=== PATIENT | female | born 1945 | race Caucasian/White ===

== ENCOUNTER 2016-12-26 11:47 | Outpatient (CLI) ==
--- NOTE | 2016-12-26 14:28 | MRI ---
EXAM: MRI right foot without contrast. HISTORY: Pain. Fell. Top of foot pain first, second, third toes. Lateral ankle pain.. TECHNIQUE: Using a local extremity coil on a high field strength magnet multiplanar multisequence m agnet resonance imaging was performed of the right mid to forefoot without intravenous or intra-michael cular gadolinium contrast. Note this constitutes incomplete MR evaluation of the right hind-foot.. COMPARISON: Three-view plain film examination right foot 12/18/2016. FINDINGS: Please see separately dictated MRI right hind-foot 12/26/2016 for further evaluation. The alignment of the right mid to forefoot shows no dislocation. There are two separate corticated foci of ossification by transverse plane representing the medial cuneiform. This has the appearance of old fracture with nonunion. Prior tear/injury Lisfranc ligament. Extensive confluent bone marrow edema centered over this level along the lateral first metatarsal base, lateral aspect of the medial cuneiform as well as joint centered over the second and third tarsometatarsal joints. Confluent bone marrow edema over the proximal fourth metatarsal shaft and seen over the second and fourth metatarsal head as well. Confluent bone marrow edema/contusion over the lateral aspect of th e cuboid. Suspicion for superimposed areas of nondisplaced fracture over the lateral aspect of the medial cuneiform as well as second metatarsal base and lateral cuboid. Appearance of stress reactio n/stress fracture proximal fourth metatarsal. Superficial soft tissue edema/swelling over the dorsum. Muscle bulk shows some fatty infiltration/a trophy. Osteoarthrosis right great toe. First metatarsal phalangeal joint effusion. Dorsal extens or and plantar flexor tendons intact without tenosynovitis.. 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 Prior tear/injury Lisfranc ligament. Extensive confluent bone marrow edema/contusion centered over the midfoot as described. Specificall y suspected superimposed areas of nondisplaced fracture over the lateral aspect of the medial cuneif orm as well as second metatarsal base and lateral cuboid. Appearance of stress reaction/stress frac ture proximal fourth metatarsal. Superficial soft tissue edema/swelling over the dorsum. Muscle bulk fatty infiltration/atrophy. Osteoarthrosis right great toe.
--- NOTE | 2016-12-26 14:46 | MRI ---
EXAM: MRI right ankle/hind-foot without contrast. HISTORY: Pain right foot and ankle. Fell. Pain top of foot. Pain first, second, third toes. Emmanuel n lateral ankle. No right hind foot surgery.. TECHNIQUE: Using a local extremity coil on a high field strength magnet multiplanar multisequence M RI was performed of the right hind to midfoot without intravenous or intra-articular gadolinium cont rast. Note this constitutes incomplete MR evaluation of the right forefoot. COMPARISON: Three-view plain film examination right ankle 12/18/2016. FINDINGS: Please see separately dictated MRI right mid to forefoot 12/26/2016 for further evaluatio n. Alignment of the right hind to midfoot shows no dislocation. In correlation there is tear/stretch i njury involving the Lisfranc ligament. Two separate foci of corticated ossification with transverse oriented separation over the medial cuneiform. Appearance of ununited fracture/nonunion. Extensiv e bone marrow edema/contusion over the more inferior focus of ossification with question subchondral fracture. Bone marrow edema/contusion over the second metatarsal base with question avulsion fract ure over the medial aspect.. Adjacent areas of bone marrow edema/contusion over the lateral base of the first metatarsal and more distal lateral aspects of the middle and lateral cuneiform. Bone mar row edema/contusion over the proximal fourth metatarsal shaft which may reflect an area of stress re action/stress fracture. Bone marrow edema/contusion over the lateral aspect of the cuboid with nond isplaced fracture/stress fracture as well. Mild osteoarthrosis talonavicular joint. Talar dome of normal morphology. Superficial circumferent ial soft tissue edema/swelling about the right hind-foot. Low-lying soleus. Distal Achilles tendin osis/peritendinitis. Anterior compartment tendons intact. Thickening and increased signal intensit y to the proximal plantar fascia compatible with plantar fasciitis and partial tearing. Within the medial compartment there is posterior tibial tendinosis. The flexor digitorum longus and flexor hallucis longus tendons intact. Intact deltoid ligament fibers. Course of the tarsal tunne l within normal limit. Within the lateral compartment both the peroneus brevis and peroneus longus tendons intact without s ubluxation. Intact anterior and posterior tibiofibular ligament fibers as well as transverse ligame nt/tibial slip. Intact anterior and posterior talofibular ligament fibers as well as calcaneofibula r ligament fibers.. IMPRESSION: Tear/stretch injury involving the Lisfranc ligament. 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 Extensive bone marrow edema/contusion about the midfoot centered over the tarsometatarsal joint as d escribed. Areas of suspected superimposed nondisplaced fracture/stress fracture as described. Mild osteoarthrosis. Superficial circumferential soft tissue edema/swelling. Distal Achilles tendinosis/peritendinitis. Proximal plantar fasciitis and partial tearing. Posterior tibial tendinosis. Given the above findings recommendation is obtainment and correlation with dedicated CT right foot f or further delineation of the underlying osseous anatomy.
== END 2016-12-26 11:48 | disposition home or self-care (01) ==
LOC: RAD 11:47
PROVIDERS: ATTEND Physician Assistant Medical
DX: M79.671 Pain in right foot (principal)

== ENCOUNTER 2021-05-09 15:07 | Inpatient (IN) ==
--- NOTE | 2021-05-09 17:09 | ED.PDOC ---
General ED Provider: Dr. NAEEM ZAPIEN Chief Complaint: Back Pain Stated Complaint: Hip and back pain Time Seen by Provider: 05/09/21 17:20 Mode of Arrival: Ambulance Information Source: Patient and EMT Primary Care Provider: ASHANTI ALVARENGA MD Nursing and Triage Documentation Reviewed and Agree: Yes Does patient meet sepsis criteria?: No System Inflammatory Response Syndrome: Acutely Altered Mental Status and Not Applicable Sepsis Protocol: For patient's 13 years and over: Temp is 96.8 and below OR 101 and greater Pulse >90 BPM Resp >20/minute Acutely Altered Mental Status Are patient's symptoms suggestive of a new infection, such as: -Pneumonia -Skin, Soft Tissue -Endocarditis -UTI -Bone, Joint Infection -Implantable Device -Acute Abdominal Infection -Wound Infection -Meningitis -Blood Stream Catheter Infection -Unknown Musculoskeletal Complaint Exam Back Pain Complaint/Exam Mechanism of Injury: Reports No known trauma Onset/Duration: 2 days Symptoms Are: Worse Timing: Constant Episodes Lasting: Minutes Initial Severity: Moderate Current Severity: Moderate Location: Reports Diffuse (Rt Lumbar region into Rt Hip) Character: Reports Dull, Aching, Spasmodic and Stiffness Aggravating: Reports Movements Alleviating: Reports Rest Associated Signs and Symptoms: Denies Swelling, Redness, Bruising, Fever, Weakness, Numbness, Tingling, Abdominal pain, Flank pain, Bladder incontinence, Bowel incontinence, Weight loss and Pain with weight bearing Related History: Reports Similar episode TAD Risk Factors: Reports None AAA Risk Factors: Reports None Cauda Equina Risk Factors: Reports None Epidural Abcess Risk Factors: Reports None Related Surgical History: Reports None Focal Tenderness: Yes Paraspinal Muscle Tenderness: Yes Paraspinal Muscle Spasm: Yes Scoliosis: No Lordosis: No Kyphosis: No SLR Test: Right Negative and Left Negative Hip Motion Testing Pain: Right Positive and Left Negative Focal Weakness: Present None Focal Sensory Loss: Present None Gait: Present Unable Differential Diagnoses: Strain and Sprain Review of Systems Review Of Systems Constitutional: Reports Loss of appetite Eyes: Reports No symptoms Ears, Nose, Mouth, Throat: Reports No symptoms Respiratory: Reports No symptoms Cardiac: Reports No symptoms GI: Reports No symptoms : Reports No symptoms Musculoskeletal: Reports Back pain, Joint pain and Muscle pain Skin: Reports No symptoms Neurological: Reports No symptoms Endocrine: Reports No symptoms Hematologic/Lymphatic: Reports No symptoms All Other Systems: Reviewed and Negative [facility] Medical History (Updated 05/12/21 @ 08:20 by STEPHANIE BA) Diabetes Dyslipidemia GERD (gastroesophageal reflux disease) Hypertension Hypothyroid Lumbar radiculopathy Morbid obesity with BMI of 40.0-44.9, adult Neuropathy Renal failure Family History (Updated 05/09/21 @ 21:40 by EUGENE AMES, RN) FATHER Cancer Mother Hypertension Social History (Updated 05/09/21 @ 21:41 by EUGENE AMES RN) Smoking and tobacco status: Former smoker Surgical History (Updated 05/11/21 @ 07:57 by STEPHANIE BA) H/O tubal ligation History of appendectomy History of D&C History of foot surgery History of hysterectomy Physical Exam Physical Exam Appearance: Reports Well-appearing, Ill-appearing (moderate pain), Well- nourished and Obese Ill-appearing: None Pain Distress: Moderate Eyes: Reports WILLIAMS, EOMI and Conjunctiva clear ENT: Reports Ears normal, Nose normal and Oropharynx normal Neck: Supple Respiratory: Reports Airway patent, Breath sounds clear, Breath sounds equal and Respirations nonlabored Cardiovascular: Reports RRR, Pulses normal, No rub and No murmur GI/: Reports Soft, Nontender, No masses, Bowel sounds normal and No Organomegaly Musculoskeletal: Reports Normal strength, ROM intact, No edema and No calf ten derness Skin: Reports Warm, Dry and Normal color Neurological: Reports Sensation intact, Motor intact, Reflexes intact, Cranial nerves intact, Alert and Oriented Psychiatric: Reports Affect appropriate and Mood appropriate Interpretation Radiology Interpretation Exam Interpreted: CT Scan (degenerative changes in the spine. No Fracture. Sclerotic lesion acetabulum) Physician Notification Case Discussed Physician Notified: Dr Lujan-agrees with admit Time of Notification: 18:00 Critical Care Note Critical Care Note Total Critical Care Time (mins): 0 Course Course Hematology/Chemistry: 05/15/21 04:33 05/15/21 04:33 Orders, Labs, Meds: Lab Review 05/09/21 05/09/21 05/09/21 17:22 17:22 18:55 WBC 8.80 RBC 4.73 Hgb 13.7 Hct 40.9 MCV 86.5 MCH 29.0 MCHC 33.5 RDW Coeff of [place] 12.6 Plt Count 163 Immature Gran % (Auto) 0.2 Neut % (Auto) 63.0 Lymph % (Auto) 22.0 [place] % (Auto) 10.6 H Eos % (Auto) 3.3 Baso % (Auto) 0.9 Neut # (Auto) 5.5 Lymph # (Auto) 1.9 [place] # (Auto) 0.9 Eos # (Auto) 0.3 Baso # (Auto) 0.1 Immature Gran # (Auto) 0.0 Sodium 142.4 Potassium 4.74 Chloride 106.5 Carbon Dioxide 28.7 Anion Gap 11.94 BUN 25.1 H Creatinine 1.23 Estimated GFR (MDRD) 42.00 BUN/Creatinine Ratio 20.40 Glucose 75.6 Calcium 10.35 H Total Bilirubin 0.68 AST 26.0 ALT 31.6 Alkaline Phosphatase 73.4 Total Protein 6.78 Albumin 4.30 Globulin 2.48 Albumin/Globulin Ratio 1.73 Urine Color Yellow Urine Clarity Slightly Urine pH 6.5 Ur Specific [place] 1.010 Urine Protein Negative Urine Glucose (UA) Negative Urine Ketones Negative Urine Blood Negative Urine Nitrite Positive H Urine Bilirubin Negative Urine Urobilinogen 0.2 Ur Leukocyte Esterase Negative Urine Microscopic WBC 0-2 Ur Squamous Epith Cells Not present Urine Bacteria 4+ Adenovirus (PCR) B. pertussis DNA (PCR) B.parapertussis DNA PCR C. pneumoniae DNA (PCR) Coronavirus OC43 (PCR) Coronavirus HKU1 (PCR) Coronavirus 229E (PCR) Coronavirus NL63 (PCR) Human Metapneumovir PCR Influenza Type A (PCR) Influenza B (RT-PCR) M. pneumoniae (PCR) Parainfluenza 1 (PCR) Parainfluenza 2 (PCR) Parainfluenza 3 (PCR) Parainfluenza 4 (PCR) RSV (PCR) Entero/Rhino (PCR) SARS-CoV-2 (PCR) 05/09/21 18:58 WBC RBC Hgb Hct MCV MCH MCHC RDW Coeff of [place] Plt Count Immature Gran % (Auto) Neut % (Auto) Lymph % (Auto) [place] % (Auto) Eos % (Auto) Baso % (Auto) Neut # (Auto) Lymph # (Auto) [place] # (Auto) Eos # (Auto) Baso # (Auto) Immature Gran # (Auto) Sodium Potassium Chloride Carbon Dioxide Anion Gap BUN Creatinine Estimated GFR (MDRD) BUN/Creatinine Ratio Glucose Calcium Total Bilirubin AST ALT Alkaline Phosphatase Total Protein Albumin Globulin Albumin/Globulin Ratio Urine Color Urine Clarity Urine pH Ur Specific [place] Urine Protein Urine Glucose (UA) Urine Ketones Urine Blood Urine Nitrite Urine Bilirubin Urine Urobilinogen Ur Leukocyte Esterase Urine Microscopic WBC Ur Squamous Epith Cells Urine Bacteria Adenovirus (PCR) Not detected B. pertussis DNA (PCR) Not detected B.parapertussis DNA PCR Not detected C. pneumoniae DNA (PCR) Not detected Coronavirus OC43 (PCR) Not detected Coronavirus HKU1 (PCR) Not detected Coronavirus 229E (PCR) Not detected Coronavirus NL63 (PCR) Not detected Human Metapneumovir PCR Not detected Influenza Type A (PCR) Not detected Influenza B (RT-PCR) Not detected M. pneumoniae (PCR) Not detected Parainfluenza 1 (PCR) Not detected Parainfluenza 2 (PCR) Not detected Parainfluenza 3 (PCR) Not detected Parainfluenza 4 (PCR) Not detected RSV (PCR) Not detected Entero/Rhino (PCR) Not detected SARS-CoV-2 (PCR) Not detected Orders Category Date Time Status EKG-(ED ONLY) Stat CARDIO 05/09/21 17:09 Completed IV [ED IV/MEDIPORT/POWERPORT] .ONCE EMERGENCY 05/09/21 18:53 Active CBC W/ AUTO DIFF Stat LAB 05/09/21 17:22 Completed CMP [COMPREHENSIVE METABOLIC PANEL] Stat LAB 05/09/21 17:22 Completed RESPIRATORY PANEL 2.1 (PCR) Stat LAB 05/09/21 18:58 Completed UA [URINALYSIS C & S IF INDICATED] Stat LAB 05/09/21 18:55 Completed URINE CULTURE Stat LAB 05/09/21 18:55 Completed 0.9 % Sodium Chloride [Saline Flush] MEDS 05/09/21 18:53 Discontinued 1 syr IVF PRN PRN Enoxaparin Sodium [Lovenox] MEDS 05/09/21 19:00 Discontinued 40 mg IVP Q24H Nalbuphine HCl [Nubain] MEDS 05/09/21 18:22 Discontinued 10 mg IM ONCE STA Nalbuphine HCl [Nubain] MEDS 05/09/21 19:00 Discontinued [address] PELVIS W/O CONTRAST Stat RADS 05/09/21 17:09 Completed Medications Generic Name Dose Route Start Last Admin Trade Name Freq PRN Reason Stop Dose Admin Acetaminophen 650 mg 05/09/21 20:25 Acetaminophen 325 Mg Tablet PO Q4H PRN Analgesia Atorvastatin Calcium 20 mg 05/10/21 09:00 05/15/21 09:15 Atorvastatin Calcium 20 Mg Tablet PO 20 mg DAILY SHAWN Administration Calcium/Vitamin D 1 each 05/10/21 09:00 05/15/21 09:14 Calcium Carbonate/Vitamin D3 500 Mg/5 Mcg(200iu) 1 Each Tablet PO 1 each DAILY SHAWN Administration Cefdinir 300 mg 05/14/21 13:00 05/15/21 09:14 Cefdinir 300 Mg Capsule PO 05/17/21 12:59 300 mg Q12HR SHAWN Administration Cholecalciferol 1,000 unit 05/10/21 09:00 05/15/21 09:15 Cholecalciferol (Vitamin D3) 1,000 Unit (25 Mcg) Tablet PO 1,000 unit DAILY SHAWN Administration Enoxaparin Sodium 40 mg 05/10/21 21:00 05/14/21 20:43 Enoxaparin Sodium 40 Mg/0.4 Ml Syr SUBCUT 40 mg BEDTIME SHAWN Administration Gabapentin 200 mg 05/10/21 09:00 05/15/21 09:15 Gabapentin 100 Mg Capsule PO 200 mg BID SHAWN Administration Insulin Glargine 25 unit 05/10/21 21:00 05/14/21 20:48 Insulin Glargine,Hum.Rec.Anlog 100 Units/Ml SUBCUT 25 unit BEDTIME SHAWN Administration Insulin Human Lispro 5 unit 05/10/21 08:30 05/15/21 17:38 Insulin Lispro 100 Unit/Ml (3 Ml) Vial SUBCUT 5 unit TIDWM SHAWN Administration Insulin Human Regular 0 unit 05/10/21 12:09 05/15/21 17:38 Insulin Regular, Human 100 Unit/Ml (3ml) Vial SUBCUT 6 unit PRN PRN Administration Hyperglycemia Protocol Levothyroxine Sodium 75 mcg 05/10/21 06:30 05/15/21 06:28 Levothyroxine Sodium 75 Mcg Tablet PO 75 mcg QDAC SHAWN Administration Lisinopril 10 mg 05/10/21 09:00 05/15/21 09:15 Lisinopril 10 Mg Tablet PO 10 mg DAILY SHAWN Administration Nalbuphine HCl 10 mg 05/09/21 21:58 Nalbuphine Hcl 10 Mg/Ml Ampul IM Q6H PRN Pain Nystatin 1 applic 05/09/21 21:59 Nystatin 15 Gm Powder TP QID PRN Skin excoriation Ondansetron HCl 4 mg 05/09/21 20:25 Ondansetron Hcl/Pf 4 Mg/2 Ml Sdv IVP Q6H PRN Nausea / Vomiting Oxybutynin Chloride 5 mg 05/09/21 21:00 05/15/21 09:14 Oxybutynin Chloride 5 Mg Tablet PO 5 mg DAILY SHAWN Administration Prednisone 20 mg 05/13/21 08:30 05/15/21 09:14 Prednisone 20 Mg Tablet PO 20 mg DAILYWM SHAWN Administration Tizanidine HCl 4 mg 05/10/21 15:00 05/15/21 14:28 Tizanidine Hcl 4 Mg Tablet PO 4 mg TID SHAWN Administration Tramadol HCl 50 mg 05/09/21 23:00 05/15/21 14:28 Tramadol Hcl 50 Mg Tablet PO 50 mg TID SHAWN Administration Discontinued Medications Generic Name Dose Route Start Last Admin Trade Name Freq PRN Reason Stop Dose Admin Enoxaparin Sodium 40 mg 05/09/21 19:00 05/09/21 22:10 Enoxaparin Sodium 40 Mg/0.4 Ml Syr IVP Not Given Q24H [facility] Enoxaparin Sodium 30 mg 05/10/21 09:00 Enoxaparin Sodium 30 Mg/0.3 Ml Syr SUBCUT DAILY [facility] Enoxaparin Sodium 40 mg 05/09/21 22:05 05/09/21 22:48 Enoxaparin Sodium 40 Mg/0.4 Ml Syr SUBCUT 40 mg Q24H SHAWN Administration Levofloxacin/Dextrose 500 mg in 100 mls @ 100 mls/hr 05/09/21 20:30 05/09/21 21:27 Levaquin 500 Mg/100 Ml D5w IV 05/12/21 20:29 100 mls/hr DAILY SHAWN Administration Levofloxacin/Dextrose 750 mg in 150 mls @ 100 mls/hr 05/10/21 21:00 05/10/21 20:44 Levaquin 750 Mg/150 Ml D5w IV 05/13/21 20:59 100 mls/hr Q48HR@2100 SHAWN Administration CEFTRIAXONE/D5W 1 GM PREMIX 1 gm in 50 mls @ 75 mls/hr 05/11/21 09:00 05/14/21 13:06 Rocephin 1 Gm/50 Ml D5w IV 05/15/21 08:59 Not Given DAILY SHAWN Sodium Chloride 1,000 mls @ 75 mls/hr 05/11/21 09:00 05/11/21 09:53 Sodium Chloride IV 05/11/21 20:20 75 mls/hr .[id number] SHAWN Administration Insulin Human Lispro 5 unit 05/09/21 21:15 Insulin Lispro 100 Unit/Ml (3 Ml) Vial SUBCUT DIRECTED SHAWN Ketorolac Tromethamine 15 mg 05/09/21 22:31 05/11/21 04:42 Ketorolac Tromethamine 15 Mg/Ml Vial IVP 05/13/21 22:31 15 mg Q6HR PRN Administration Pain Levothyroxine Sodium 75 mcg 05/10/21 09:00 Levothyroxine Sodium 75 Mcg Tablet PO DAILY SHAWN Methylprednisolone Sodium Succinate 125 mg 05/09/21 21:00 05/12/21 05:50 Methylprednisolone Sod Succ/Pf 125 Mg/2 Ml Vial IVP 125 mg Q8HR SHAWN Administration Nalbuphine HCl 10 mg 05/09/21 18:22 05/09/21 18:30 Nalbuphine Hcl 10 Mg/Ml Ampul IM 05/09/21 18:23 10 mg ONCE STA Administration Nalbuphine HCl 10 mg 05/09/21 19:00 Nalbuphine Hcl 10 Mg/Ml Ampul IM PRN SHAWN Nystatin 1 applic 05/09/21 21:00 05/09/21 22:11 Nystatin 15 Gm Powder TP Not Given QID SHAWN Sodium Chloride 1 syr 05/09/21 18:53 0.9% Sodium Chloride 10 Ml Disp.Syrin IVF PRN PRN To flush IV Sodium Chloride 1 syr 05/10/21 13:30 05/14/21 13:15 0.9% Sodium Chloride 10 Ml Disp.Syrin IVF Not Given Q8HR SHAWN Tizanidine HCl 4 mg 05/09/21 21:00 05/10/21 08:44 Tizanidine Hcl 4 Mg Tablet PO 4 mg BID SHAWN Administration Vital Signs: Temp Pulse Resp BP Pulse Ox 05/09/21 15:07 98.0 F 57 L 20 153/53 H 97 Discharge Plan Discharge Patient Disposition: ADMITTED INPATIENT Discharge Problem: Acute low back pain, Bilateral hip pain, Acute UTI ED Provider: NAEEM ZAPIEN Condition: Fair Physician Progress Note: []
[2021-05-09 17:26] LABS: BASOPHILS # (AUTO) 0.1 K/uL (0-0.2); BASOPHILS % (AUTO) 0.9 % (0.0-3.0); EOSINOPHILS # (AUTO) 0.3 K/ul (0.0-0.7); EOSINOPHILS % (AUTO) 3.3 % (0.0-7.0); HEMATOCRIT 40.9 % (37.0-47.0); HEMOGLOBIN 13.7 g/dl (12.0-16.0); IMMATURE GRANULOCYTE % (AUTO) 0.2 % (0.0-5.0); LYMPHOCYTES # (AUTO) 1.9 K/uL (0.60-3.4); MEAN CORPUSCULAR HGB CONC 33.5 (31.8-35.4); MEAN CORPUSCULAR VOLUME 86.5 fl (81.0-99.0); MONOCYTES # (AUTO) 0.9 K/uL (0.4-2.0); MONOCYTES % (AUTO) 10.6 (0-10); NEUTROPHILS # (AUTO) 5.5 K/ul (2.0-6.9); PLATELET COUNT 163 10^3/uL (140-440); RDW COEFFICIENT OF VARIATION 12.6 % (11.6-14.8); RED BLOOD COUNT 4.73 10^6/ul (4.20-5.40)
[2021-05-09 17:39] LABS: ALANINE AMINOTRANSFERASE 31.6 U/L (0-35); ALBUMIN 4.3 g/dL (3.5-5.0); ALKALINE PHOSPHATASE 73.4 U/L (53-141); BILIRUBIN,TOTAL 0.68 mg/dL (0.2-1.3); BLOOD UREA NITROGEN 25.1 mg/dL (7-17); CALCIUM 10.35 mg/dL (8.4-10.2); CARBON DIOXIDE 28.7 mmol/L (22-30.0); CHLORIDE 106.5 mmol/L (98-107); CREATININE 1.23 mg/dL (0.60-1.30); GLUCOSE 75.6 mg/dL (74-106); POTASSIUM 4.74 mmol/L (3.5-5.1); SODIUM 142.4 mmol/L (134.5-145); TOTAL PROTEIN 6.78 g/dL (6.3-8.2)
--- NOTE | 2021-05-09 17:55 | CT ---
EXAM: CT pelvis without contrast. HISTORY: Hip and pelvic pain. PROCEDURE: Contiguous axial CT images of the pelvis without contrast with coronal and sagittal refor mats. FINDINGS: The bones are intact with no evidence of fracture. The joint spaces are maintained. There is a 1 cm sclerotic lesion in the right acetabulum. There are degenerative changes in the spine. T he visualized loops of bowel are normal in appearance. The bladder is adequately filled and normal i n appearance. The uterus is surgically absent. No free fluid or free air in the pelvis. Impression: No evidence of fracture. 1 cm sclerotic lesion in the right acetabulum. The differential diagnosis includes bone island and m etastatic disease. Hysterectomy. All CT scans are performed using dose optimization techniques as appropriate to the performed exam an d include at least one of the following: Automated exposure control, adjustment of the mA and/or kV according t o size, and the use of iterative reconstruction technique.
[2021-05-09] MEDS ORDERED: NUBAIN IM STA (18:22)
[2021-05-09] MEDS ORDERED: NUBAIN IM SCH (19:00)
[2021-05-09] MEDS ORDERED: LOVENOX IVP SCH (19:00)
[2021-05-09 19:02] LABS: BORDETELLA PARAPERTUSSIS (PCR) NOT DETECTED (NOT DETECT); BORDETELLA PERTUSSIS (PCR) NOT DETECTED (NOT DETECT); CHLAMYDIA PNEUMONIAE (PCR) NOT DETECTED (NOT DETECT); CORONAVIRUS 229E (PCR) NOT DETECTED (NOT DETECT); CORONAVIRUS HKU1 (PCR) NOT DETECTED (NOT DETECT); CORONAVIRUS NL63 (PCR) NOT DETECTED (NOT DETECT); CORONAVIRUS OC43 (PCR) NOT DETECTED (NOT DETECT); HUMAN METAPNEUMOVIRUS (PCR) NOT DETECTED (NOT DETECT); HUMAN RHINOVIRUS/ENTEROV (PCR) NOT DETECTED (NOT DETECT); INFLUENZA B (PCR) NOT DETECTED (NOT DETECT); MYCOPLASMA PNEUMONIAE (PCR) NOT DETECTED (NOT DETECT); PARAINFLUENZA VIRUS 1 (PCR) NOT DETECTED (NOT DETECT); PARAINFLUENZA VIRUS 2 (PCR) NOT DETECTED (NOT DETECT); PARAINFLUENZA VIRUS 3 (PCR) NOT DETECTED (NOT DETECT); PARAINFLUENZA VIRUS 4 (PCR) NOT DETECTED (NOT DETECT); RESPIRATORY SYNCYTIAL V (PCR) NOT DETECTED (NOT DETECT); SARS_COV_2 (PCR) NOT DETECTED (NOT DETECT)
[2021-05-09 19:08] LABS: BILIRUBIN,URINE Negative (NEGATIVE); CLARITY,URINE Slightly (CLEAR); COLOR,URINE Yellow (YELLOW); GLUCOSE, URINE (UA) Negative (NEGATIVE); KETONES,URINE Negative (NEGATIVE); LEUKOCYTE ESTERASE ,URINE Negative (NEGATIVE); NITRITE,URINE Positive (NEGATIVE); PH,URINE 6.5 (5-9); PROTEIN,URINE Negative (NEGATIVE); URINE, BLOOD Negative (NEGATIVE); UROBILINOGEN,URINE 0.2 (0.2)
[2021-05-09 19:17] LABS: BACTERIA,URINE 4+ (NOT PRESENT); SQUAMOUS EPITHELIAL CELL,UR NOT PRESENT (0-5); URINE WBC, MICROSCOPIC 0-2 (0-2)
[2021-05-09 19:52] LABS: ADENOVIRUS (PCR) NOT DETECTED (NOT DETECT)
[2021-05-09] MEDS ORDERED: ZOFRAN 4 MG/2 ML IVP PRN (20:25)
[2021-05-09] MEDS ORDERED: TYLENOL PO PRN (20:25)
[2021-05-09] MEDS ORDERED: LEVAQUIN 500 MG/100 ML D5W 500 MG/100 ML BAG IV SCH (20:30)
[2021-05-09] MEDS ORDERED: NYSTOP POWDER TP SCH (21:00)
[2021-05-09] MEDS ORDERED: HUMALOG SUBCUT SCH (21:15)
[2021-05-09 21:28] VITALS: BMI 44.6
[2021-05-09] MEDS: DITROPAN PO SCH (21:36)
[2021-05-09] MEDS: ZANAFLEX PO SCH (21:40)
[2021-05-09] MEDS ORDERED: NUBAIN IM PRN (21:58)
[2021-05-09] MEDS ORDERED: NYSTOP POWDER TP PRN (21:59)
[2021-05-09] MEDS ORDERED: LOVENOX SUBCUT SCH (22:05)
[2021-05-09] MEDS: SOLU-MEDROL 125 MG IVP SCH (22:25)
[2021-05-09] MEDS: ULTRAM PO SCH (22:48)
[2021-05-10] MEDS: TORADOL IVP PRN ×2 (02:58→13:30)
[2021-05-10 04:36] LABS: BASOPHILS % (AUTO) 0.4 % (0.0-3.0); EOSINOPHILS % (AUTO) 0.1 % (0.0-7.0); HEMATOCRIT 41.1 % (37.0-47.0); HEMOGLOBIN 13.8 g/dl (12.0-16.0); IMMATURE GRANULOCYTE % (AUTO) 0.3 % (0.0-5.0); LYMPHOCYTES # (AUTO) 0.7 K/uL (0.60-3.4); LYMPHOCYTES % (AUTO) 9.1 (10.0-50.0); MEAN CORPUSCULAR HGB CONC 33.6 (31.8-35.4); MEAN CORPUSCULAR VOLUME 86.3 fl (81.0-99.0); MONOCYTES # (AUTO) 0.1 K/uL (0.4-2.0); MONOCYTES % (AUTO) 0.9 (0-10); NEUTROPHILS # (AUTO) 6.9 K/ul (2.0-6.9); NEUTROPHILS % (AUTO) 89.2 % (42.2-75.2); PLATELET COUNT 137 10^3/uL (140-440); RDW COEFFICIENT OF VARIATION 12.3 % (11.6-14.8); RED BLOOD COUNT 4.76 10^6/ul (4.20-5.40); WHITE BLOOD COUNT 7.73 K/ul (4.6-10.2)
[2021-05-10 04:46] LABS: ALANINE AMINOTRANSFERASE 29.4 U/L (0-35); ALBUMIN 4.22 g/dL (3.5-5.0); ALKALINE PHOSPHATASE 78.7 U/L (53-141); ASPARTATE AMINO TRANSFERASE 24.3 U/L (14-36); BILIRUBIN,TOTAL 0.71 mg/dL (0.2-1.3); BLOOD UREA NITROGEN 27.1 mg/dL (7-17); CALCIUM 10.02 mg/dL (8.4-10.2); CARBON DIOXIDE 27.6 mmol/L (22-30.0); CREATININE 1.24 mg/dL (0.60-1.30); POTASSIUM 5.34 mmol/L (3.5-5.1); SODIUM 139.1 mmol/L (134.5-145); TOTAL PROTEIN 6.63 g/dL (6.3-8.2)
[2021-05-10] MEDS: SYNTHROID PO SCH (05:54)
[2021-05-10] MEDS: SOLU-MEDROL 125 MG IVP SCH ×3 (06:02→20:32)
[2021-05-10] MEDS: DITROPAN PO SCH (08:44)
[2021-05-10] MEDS: ZESTRIL PO SCH (08:44)
[2021-05-10] MEDS: NEURONTIN PO SCH ×2 (08:44→20:32)
[2021-05-10] MEDS: ZANAFLEX PO SCH ×3 (08:44→20:32)
[2021-05-10] MEDS: VITAMIN D PO SCH (08:44)
[2021-05-10] MEDS: CALCIUM 500 + VIT D 5 MCG (200 IU) TABLET PO SCH (08:45)
[2021-05-10] MEDS: LIPITOR PO SCH (08:45)
[2021-05-10] MEDS: ULTRAM PO SCH ×3 (08:45→20:32)
[2021-05-10] MEDS: HUMALOG SUBCUT SCH ×3 (08:46→17:25)
[2021-05-10] MEDS ORDERED: LOVENOX SUBCUT SCH (09:00)
[2021-05-10] MEDS ORDERED: NON-FORMULARY MEDICATION (Calcium Carbonate [Calcium 600] 600 mg calcium (1,500 mg) Tablet PO SCH (09:00)
[2021-05-10] MEDS ORDERED: FERROUS SULFATE PO SCH (09:00)
[2021-05-10] MEDS ORDERED: SYNTHROID PO SCH (09:00)
--- NOTE | 2021-05-10 09:58 | DI ---
EXAM: Chest two view, frontal and lateral views. HISTORY: Acute back pain. COMPARISON: None. FINDINGS: The heart size is mildly enlarged. There is no pulmonary vascular congestion. There is a thin linear opacity in the anterior lingula. Otherwise, the lungs are clear. No pleural effusion o r pneumothorax is seen. No acute osseous abnormality identified. IMPRESSION: 1. Lingular subsegmental atelectasis. 2. Cardiomegaly.
--- NOTE | 2021-05-10 10:29 | CT ---
EXAM: CT lumbar spine without contrast. HISTORY: Acute lower back pain with history of UTI COMPARISON: Lumbar spine x-rays 12/08/2020 TECHNIQUE: Serial axial images of the spine were obtained from the lower thoracic spine through the pelvis without contrast. These were viewed in multiple planes. FINDINGS: Vertebral bodies demonstrate no acute compression fracture or subluxation. There are scat tered anterior posterior disc osteophytes. There is moderate facet arthropathy. Lumbosacral junctio n is intact with mild narrowing. The posterior and transverse processes are normal. Posterior disc osteophyte and facet arthropathy contributing to mild bilateral neural foraminal narrowing at L2-L3. There is moderate to severe right neural foraminal narrowing with mild neural foraminal narrowing no ericka L3-L4. There is bilateral moderate neural foraminal narrowing at L4-L5. There is severe narrowi ng of the left neural foramen L5-S1. IMPRESSION: 1. No acute compression fracture or subluxation. 2. Multilevel degenerative disease of the spine with narrowing at multiple levels of the neural fora men which is most severe on the left at L5-S1. If further evaluation is clinically indicated, MRI ma y be obtained. All CT scans are performed using dose optimization techniques as appropriate to the performed exam an d include at least one of the following: Automated exposure control, adjustment of the mA and/or kV according t o size, and the use of iterative reconstruction technique.
[2021-05-10] MEDS: HUMULIN R SUBCUT PRN ×3 (12:34→20:35)
--- NOTE | 2021-05-10 16:01 | RS.OTINEVL ---
Subjective - Patient information Date of Evaluation: 05/10/21 Date of Arrival on Unit: 05/09/21 Diagnosis: Acute low back pain PRECAUTIONS: Pt describing sciatic pain in her buttox. Usual Living Arrangement: Alone Living Arrangement Comments: Lives alone in her apartment that has an upstairs. Reports that it is handicap accessible. Pt keeps her rollator on the main floor. Pt has 15 hours of assistance a week for laundry, cooking, cleaning, and shopping. Pt has a sink and toilet in bathroom downstairs. Home Environment: Apartment Medical History: Diabetes Medical History Comments:: Fell in December and just finished therapy. Subjective Information/ Patient Comments:: "I can make it to the door." - Level of function Prior to this admission, the patient could do the following:: Independent Selfcare, Independent ADL's, Independent Ambulation, Partially Dependent Ambulation, Perform Radiological Technician/Cooking, Drive, Participated in Social Activities Outside home, Volunteer/Work Abilities prior to this admission: Before her fall in December, patient was independent with dressing and bathing. Current Level of Function: Partially Dependent Current Equipment Used at Home: WALKER, CANE, GLUCOMETER Interventions - Objective Patient Orientation: Person, Place, Situation Current Interventions: IV's Observation: Pt has difficulty with bed mobility specifically sit to supine. Pt is able to use a RW CGA. Pt independent with toilet hygeine. Interventions - ROM Right Upper Extremity AROM: WFL's Left Upper Extremity AROM: WFL's - Strength Right Upper Extremity Strength: Mild Weakness Left Upper Extremity Strength: Mild Weakness - Sensation Right Upper Extremity Sensation: Intact/Normal Left Upper Extremity Sensation: Intact/Normal Balance - Sitting Balance Static Sitting Balance: Good Dynamic Sitting Balance: Good - Standing Balance Static Standing Balance: Poor Dynamic Standing Balance: Poor ADL Skills - Self Feeding Self Feeding: Independent - Grooming Grooming: CGA - Bathing Bathing UE: Independent Bathing LE: Max Assist - Dressing Dressing UE: Independent Dressing LE: Max Assist - Toilet Management Toileting Management: CGA Functional Mobility - Bed Mobility Rolling R/L: Independent Scooting: Independent Supine to Sit: Min Assist Sit to Supine: Min Assist - Transfers Sit to Stand: CGA Stand to Sit: CGA Stand Pivot Transfers: CGA NICOL INDEX SCORE: . Additional Treatment Performed - Time with patient Length of Evaluation: 20 Total treatment time: 30 Activities Do you enjoy playing games?: No Would you be interested in leaving your room for activities?: No Would you enjoy group activities?: Yes Do you have difficulty with your vision?: Yes Patient Interests:: Watching Television Patient Education Patient Education: Education of diagnosis, Home Exercise Program, Home Safety, Education of Plan of Care Teaching Recipient: Patient Teaching Methods: Discussion, Demonstration Assessment Problem List:: Decreased level of function, Decreased safety/Risk of falls, Pain limits previous level of function Rehab Potential: Good Further Therapy Indicated?: Yes Evaluation Complexity: HISTORY: Low, EXAM OF BODY SYSTEMS: Low, CLINICAL DECISION MAKING: Low Patient's Goal(s): To be pain free. Short Term Goals - Goals GOAL 1: Pt pain to decrease to 2-4/10. Goal to be met by: 05/12/21 GOAL 2: Pt to be Mod-I with toileting. Goal to be met by: 05/12/21 GOAL 3: Pt to increase safety of sink level ADLS to be Mod-I. Goal to be met by: 05/12/21 GOAL 4: Pt to increase dyn. std. balance to F-. Nursing Home Goals GOAL 1: Pt pain to decrease to 0-2/10. Goal to be met by: 05/18/21 GOAL 2: Pt to be Modified Independent with dressing. Goal to be met by: 05/18/21 GOAL 3: Pt to increase dyn. std. bal to F+ Goal to be met by: 05/18/21 Plan Plan of Care: Therapeutic EX, Therapeutic Activity, Self-Care/Home Management Frequency of Treatment: 1-2 X day, as tolerated Duration of Treatment: 1 Week Anticipated Discharge Destination: Home Treatment Diagnosis (ICD 10 Codes): Weakness M62.81 Has the Physician been added for Co-signature?: Yes
--- NOTE | 2021-05-10 16:15 | RS.PTINEVL ---
Subjective - Patient information Date of Evaluation: 05/10/21 Date of Arrival on Unit: 05/09/21 Admitted From:: Home Diagnosis: Acute Low back pain with radiculopathy Usual Living Arrangement: Alone Living Arrangement Comments: lives at home in 2 story apt with full bath on 2nd floor, with half bath on 1st floor. She has a caregiver 3 hours a day 5 days a week. Home Environment: Apartment Medical History: Hypertension, Diabetes Medical History Comments:: neuropathy, GERD, renal failure Surgical History: Hysterectomy Surgical History Comments:: stephanie choudhury sx Medications: see chart Subjective Information/ Patient Comments:: pt states that she had a fall in Dec 2020 and spent approx 6 weeks in rehab at [facility] and then received home health. pt states that her R low back/sacral area began hurting and radiating into buttocks. - Level of function Prior to this admission, the patient could do the following:: Independent Selfcare, Independent ADL's, Independent Ambulation, Partially Dependent Ambulation, Perform Body Design Checker/Cooking, Drive, Participated in Social Activities Outside home, Volunteer/Work Current Level of Function: Partially Dependent Current Equipment Used at Home: WALKER, CANE, GLUCOMETER Pain Assessement - Location R lumbar/sacral area Description: Radiating, Sharp, Aching Intensity: 7 Pain Behavior: Rubbing Site, Facial Grimacing Pain Aggravating Factors: Changing Position, Exercise/Activity Pain Alleviating Factors: Ice, Medication Interventions - Objective Patient Orientation: Person, Place, Time Current Interventions: IV's, Telemetry Observation: multiple areas of bruising. Range of Motion - ROM Right Upper Extremity AROM: WFL's Left Upper Extremity AROM: WFL's Right Lower Extremity AROM: WFL's Left Lower Extremity AROM: WFL's Comments:: RLE with pain Muscle Strength - Muscle Strength Right Upper Extremity Strength: Mild Weakness (grossly 4/5) Left Upper Extremity Strength: Mild Weakness (grossly 4/5) Right Lower Extremity Strength: Mild Weakness (hip flex 4-/5, knee flex/ext 4/5, ankle Df/PF 4/5) Left Lower Extremity Strength: Mild Weakness (hip flex 4-/5, knee flex/ext 4/5, ankle Df/PF 4/5) Sensation - Sensation Right Upper Extremity Sensation: Intact/Normal Left Upper Extremity Sensation: Intact/Normal Right Lower Extremity Sensation: Impaired (radicular pain into R buttock) Left Lower Extremity Sensation: Intact/Normal Palpation Palpation Findings: Tenderness, Trigger Point Comments:: tenderness and trigger point noted in area of R SI Balance - Sitting Balance and Reactions Static Sitting Balance: Good Dynamic Sitting Balance: Good - Standing Balance and Reactions Static Standing Balance: Poor Dynamic Standing Balance: Poor Standing Equilibrium Reactions: Delayed Left Standing Protective Reactions: Delayed Right Functional Mobility - Bed Mobility Rolling R/L: Min Assist, Mod Assist, 1 person assist, 2 person assist Scooting: Max Assist, 2 person assist Supine to Sit: Min Assist, Mod Assist, 1 person assist Sit to Supine: Min Assist, 1 person assist, 2 person assist - Transfers Sit to Stand: Min Assist, 1 person assist Stand to Sit: Min Assist, 1 person assist - Safety Awareness Safety Awareness: Fair NICOL INDEX SCORE: n/a Ambulation - Ambulation Assistive Device Used: Rolling Walker Orthotic/Prosthetic Device: No Distance: 20ft Assistance needed with Ambulation: Min Assist, 1 person assist Gait Deviations: Step-to gait, Forward posture, Short stride Factors Affecting Ambulation: Decreased Balance, Pain, Weakness, Decreased Safety, Limited Endurance Treatment time - Time with patient Length of Evaluation: 19 Total treatment time: 35 Patient Education - Education Patient Education: Activity Modification, Education of Plan of Care Teaching Recipient: Patient Teaching Methods: Discussion Assessment - Assessment Problem List:: Decreased level of function, Requires training/education, Decreased safety/Risk of falls, Weakness, Pain limits previous level of function Rehab Potential: Good Further Therapy Indicated?: Yes Candidate for Swing Bed for Therapy Services?: Feel pt may not be a candidate for swing bed would need to reeval at a later date. Evaluation Complexity: HISTORY: Medium, EXAM OF BODY SYSTEMS: Medium, CLINICAL PRESENTATION: Medium, CLINICAL DECISION MAKING: Medium Patient's Goal(s): Decrease low back pain and be able to go back home. Short Term Goals GOAL #1: pt demonstrate rolling and scooting in bed min to CGA x 1 Goal to be met by: 05/12/21 GOAL #2: Transfer sup to/from sidelying to/from sit min to CGA x 1 Goal to be met by: 05/12/21 GOAL #3: sit to/from stand CGA Goal to be met by: 05/12/21 GOAL #4: pt amb with rwx 75ft with CGA with improved step length . Goal to be met by: 05/12/21 GOAL #5: Decrease low back pain < 6/10 Goal to be met by: 05/12/21 [facility] Goals GOAL #1: pt independent with bed mobility Goal to be met by: 05/15/21 GOAL #2: Sup to/from sidelying to/from sit to/from stand independently Goal to be met by: 05/15/21 GOAL #3: pt amb functional household distances with rwx with SBA to I Goal to be met by: 05/15/21 Plan Plan of Care: Therapeutic EX, Neuromuscular Re-Educ, Therapeutic Activity Modalities: Cold Pack/Cryotherapy Other:: gait training Frequency of Treatment: 1-2 X day, as tolerated Duration of Treatment: 5 days Anticipated Discharge Destination: Home Treatment Diagnosis (ICD 10 Codes): difficulty walking R 26.2. impaired balance R 26.81. LBP M54.5. muscle weakness M62.81 Has the Physician been added for Co-signature?: Yes
[2021-05-10] MEDS: LOVENOX SUBCUT SCH (20:34)
[2021-05-10] MEDS: LANTUS SUBCUT SCH (20:36)
[2021-05-10] MEDS ORDERED: LEVAQUIN 750 MG/150 ML D5W 750 MG/150 ML BAG IV SCH (21:00)
[2021-05-11] MEDS: SOLU-MEDROL 125 MG IVP SCH ×3 (04:31→20:37)
[2021-05-11] MEDS: TORADOL IVP PRN (04:42)
[2021-05-11 04:56] LABS: BASOPHILS % (AUTO) 0.1 % (0.0-3.0); HEMATOCRIT 38.1 % (37.0-47.0); HEMOGLOBIN 12.7 g/dl (12.0-16.0); IMMATURE GRANULOCYTE # (AUTO) 0.1 (0.0-1.0); IMMATURE GRANULOCYTE % (AUTO) 0.4 % (0.0-5.0); LYMPHOCYTES # (AUTO) 0.8 K/uL (0.60-3.4); LYMPHOCYTES % (AUTO) 7.4 (10.0-50.0); MEAN CORPUSCULAR HEMOGLOBIN 28.5 pg (27.0-31.0); MEAN CORPUSCULAR HGB CONC 33.3 (31.8-35.4); MEAN CORPUSCULAR VOLUME 85.6 fl (81.0-99.0); MONOCYTES # (AUTO) 0.4 K/uL (0.4-2.0); MONOCYTES % (AUTO) 3.6 (0-10); NEUTROPHILS % (AUTO) 88.5 % (42.2-75.2); PLATELET COUNT 141 10^3/uL (140-440); RDW COEFFICIENT OF VARIATION 12.1 % (11.6-14.8); RED BLOOD COUNT 4.45 10^6/ul (4.20-5.40); WHITE BLOOD COUNT 11.35 K/ul (4.6-10.2)
[2021-05-11 05:13] LABS: ALANINE AMINOTRANSFERASE 22.8 U/L (0-35); ALBUMIN 3.76 g/dL (3.5-5.0); ALKALINE PHOSPHATASE 64.1 U/L (53-141); ASPARTATE AMINO TRANSFERASE 23.6 U/L (14-36); BILIRUBIN,TOTAL 0.42 mg/dL (0.2-1.3); BLOOD UREA NITROGEN 43.8 mg/dL (7-17); CALCIUM 9.28 mg/dL (8.4-10.2); CARBON DIOXIDE 25.4 mmol/L (22-30.0); CHLORIDE 101.7 mmol/L (98-107); CREATININE 1.42 mg/dL (0.60-1.30); GLUCOSE 325.1 mg/dL (74-106); POTASSIUM 5.24 mmol/L (3.5-5.1); SODIUM 132.8 mmol/L (134.5-145); TOTAL PROTEIN 5.82 g/dL (6.3-8.2)
[2021-05-11] MEDS: SYNTHROID PO SCH (06:13)
[2021-05-11] MEDS: HUMULIN R SUBCUT PRN ×4 (06:13→21:05)
[2021-05-11] MEDS ORDERED: SODIUM CHLORIDE 1,000 ML IV SCH (09:00)
--- NOTE | 2021-05-11 09:44 | PCM.PROG ---
Attending Provider: ATTENDING PROVIDER: Dr. ASHTYN SCHAEFFER This patient is seen with Sanam Bryan, Nurse Practitioner. DATE OF SERVICE: 05/11/21 SUBJECTIVE: This 76 year old /WHITE F was hospitalized 05/09/21. Resting comfortably in bed. The patient states pain is better with no radiation of pain down right leg, pain in bilateral hips and right buttock. Kidney function slightly worse today. Low back pain with radiculopathy. REVIEW OF SYSTEMS: CONSTITUTIONAL: No night sweats. No fatigue, malaise, lethargy. No fever or chills. HEENT: Eyes: No visual changes. No eye pain. No eye discharge. ENT: No runny nose. No epistaxis. No sinus pain. No odynophagia. No congestion. RESPIRATORY: No cough, no congestion. No hemoptysis. No shortness of breath. CARDIOVASCULAR: No angina symptoms. No CHF symptoms. No atypical chest pain for CAD. No palpitations. No orthopnea.. GASTROINTESTINAL: No abdominal pain. No nausea or vomiting. No diarrhea or constipation. No hematemesis. No hematochezia. GENITOURINARY: No urgency. No frequency. No dysuria. No hematuria. No obstruct sariah symptoms. No discharge. No pain. No significant abnormal bleeding. MUSCULOSKELETAL: Low back pain, right leg, hips and right buttock. NEUROLOGICAL: Awake, alert, oriented to time, place and person. No headache. No neck pain. No syncope. No seizures. No dizziness. PSYCHIATRIC: Not anxious. No depression. No suicidal thoughts. No homicidal thoughts. SKIN: No rash. No lesions. No wounds. ENDOCRINE: No unexplained weight loss. No weight gain. HEMATOLOGIC/LYMPHATIC: No anemia. No purpura. No petechiae. No prolonged or excessive bleeding. No palpable lymph nodes. PHYSICAL EXAMINATION: GENERAL: The patient is awake, alert and oriented, lying/sitting in bed in no d istress. VITAL SIGNS: Temperature 97.8 F, Pulse 53, Respiratory Rate 16, BP 131/70, Pulse Ox 96% HEENT: Head normocephalic, atraumatic. Eyes: Extraocular muscles are intact. Pupils are equal, round and reactive to light and accommodation. Ears: No lesions. Nose appeared normal. Throat: No exudate or erythema. NECK: Supple. No JVD, no carotid bruit. No lymphadenopathy or thyromegaly. LUNGS: Diminished breath sounds. Clear to auscultation. Percussion note normal. Chest symmetrical. HEART: S1, S2, no S3. No murmurs. No cyanosis or clubbing. No ascites. Pulses: Dorsalis pedis and posterior tibial pulses +1 to +2 both sides. ABDOMEN: Soft. Non-tender. Bowel sounds active. No CVA tenderness. No mass felt. EXTREMITIES: No edema. Full range of motion of all extremities, equal. NEUROLOGIC: No focal deficit. Cranial nerves II through XII are grossly intact. No headache. No double vision. SKIN: Not dry. Intact. Turgor-normal. LYMPHATIC: No palpable lymph nodes/no lymphedema. MUSCULOSKELETAL: Normal joints with no swelling. Muscle tone is normal. LAB REVIEW: 05/11/21 04:30 05/11/21 04:30 05/11/21 04:30: WBC 11.35 H, RBC 4.45, Hgb 12.7, Hct 38.1, MCV 85.6, MCH 28.5, MCHC 33.3, RDW Coeff of Cortez 12.1, Plt Count 141, Immature Gran % (Auto) 0.4, Neut % (Auto) 88.5 H, Lymph % (Auto) 7.4 L, Winn % (Auto) 3.6, Eos % (Auto) 0.0, Baso % (Auto) 0.1, Neut # (Auto) 10.0 H, Lymph # (Auto) 0.8, Winn # (Auto) 0.4, Eos # (Auto) 0.0, Baso # (Auto) 0.0, Immature Gran # (Auto) 0.1 05/11/21 04:30: Sodium 132.8 L, Potassium 5.24 H, Chloride 101.7, Carbon Dioxide 25.4, Anion Gap 10.94, BUN 43.8 H, Creatinine 1.42 H, Estimated GFR (MDRD) 36.00, BUN/Creatinine Ratio 30.84, Glucose 325.1 H, Calcium 9.28, Total Bilirubin 0.42, AST 23.6, ALT 22.8, Alkaline Phosphatase 64.1, Total Protein 5.82 L, Albumin 3.76, Globulin 2.06, Albumin/Globulin Ratio 1.82 ASSESSMENT: Please see below. 1. Acute low back pain. 2. Right lumbar radiculopathy. 3. UTI with gram negative rods. 4. Chronic kidney disease Stage 3. PLAN: 1. 1L NS at 75 cc/hr. 2. Discontinue Levaquin. 3. Rocephin 1 gm IV daily. Plan and coordination of the patient's care discussed in the presence of Waste Disposal Leakage Tester and nurse. CONDITION: Stable SCRIBED BY: STEPHANIE BA Medical Services Coordinator scribed while in presence of service performed by Dr. Schaeffer/Sanam Bryan APRN on 05/11/21 ([id number])
[2021-05-11] MEDS: ROCEPHIN 1 GM/50 ML D5W 1 GM/50 ML BAG IV SCH (09:53)
[2021-05-11] MEDS: CALCIUM 500 + VIT D 5 MCG (200 IU) TABLET PO SCH (09:54)
[2021-05-11] MEDS: VITAMIN D PO SCH (09:54)
[2021-05-11] MEDS: ZESTRIL PO SCH (09:54)
[2021-05-11] MEDS: NEURONTIN PO SCH ×2 (09:54→20:42)
[2021-05-11] MEDS: ZANAFLEX PO SCH ×3 (09:55→20:43)
[2021-05-11] MEDS: DITROPAN PO SCH (09:55)
[2021-05-11] MEDS: LIPITOR PO SCH (09:55)
[2021-05-11] MEDS: ULTRAM PO SCH ×3 (09:55→20:43)
[2021-05-11] MEDS: HUMALOG SUBCUT SCH ×3 (09:56→17:08)
--- NOTE | 2021-05-11 14:49 | PN ---
DATE OF SERVICE: 05/09/21 SUBJECTIVE: The patient was hospitalized through the emergency room. 76-year-old white female, a resident of [place] seen because of severe back pain and hip pain. The patient had no history of fall. Two to three days prior to hospitalization, the pain was rated as to 8 to 9 on a scale of 1 to 10. She was given Nubain and Vistaril in the emergency room which helped her some. CT scan of the pelvis was negative. She is scheduled for MRI of the lumbar spine in the morning. The patient's cardiovascular status is stable. She is going to be hospitalized for pain control. The patient during the evening hours has been given Toradol 50 mg IV along with Nubain 10 with Vistaril of 10 mg. The patient is also going to be put on Tramadol 50 mg t.i.d. p.r.n. for pain along with Tylenol. She is allergic to Codeine. CT scan of the pelvis did not show any fracture or acute findings. TIME SPENT: More than 30 minutes. Plan and coordination of the patient's care discussed in the presence of nurse. VERONICA
--- NOTE | 2021-05-11 14:56 | PN ---
DATE OF SERVICE: 05/10/21 SUBJECTIVE: 76-year-old white female hospitalized with lower back pain, moderate to severe 8 to 9 on a scale of 1 to 10. This happened Five days ago when she got up from the recliner, the patient says it feels like muscle spasms with history of muscle spasm before. The patient says the pain is somewhat less but still she has quite a bit of pain, radiation of pain to the lower part of the legs. REVIEW OF SYSTEMS: CONSTITUTIONAL: No night sweats. No fatigue, malaise, lethargy. No fever or chills. HEENT: Eyes: No visual changes. No eye pain. No eye discharge. ENT: No runny nose. No epistaxis. No sinus pain. No sore throat. No odynophagia. No congestion. RESPIRATORY: No cough, no congestion. No hemoptysis. No shortness of breath. CARDIOVASCULAR: No angina symptoms. No CHF symptoms. No atypical chest pain for CAD. No palpitations. No PND. No orthopnea. GASTROINTESTINAL: No abdominal pain. No nausea or vomiting. No diarrhea or constipation. No hematemesis. No hematochezia. GENITOURINARY: No urgency. No frequency. No dysuria. No hematuria. No obstructive symptoms. No discharge. No pain. No significant abnormal bleeding. MUSCULOSKELETAL: Back pain lower, no radiation of pain to any other parts of the body. NEUROLOGICAL: No headache. No neck pain. No syncope. No seizures. No dizziness. PSYCHIATRIC: Not anxious. No depression. No suicidal thoughts. No homicidal thoughts. SKIN: No rash. No lesions. No wounds. ENDOCRINE: No unexplained weight loss. No weight gain. HEMATOLOGIC/LYMPHATIC: No anemia. No purpura. No petechiae. No prolonged or excessive bleeding. No palpable lymph nodes. PHYSICAL EXAMINATION: VITAL SIGNS: Temperature 97.8, pulse 53, respiratory rate 18, blood pressure 135/59, pulse ox 93%. HEENT: Head normocephalic, atraumatic. Eyes: Extraocular muscles are intact. Pupils are equal, round and reactive to light and accommodation. Ears: No lesions. Nose appeared normal. Throat: No exudate or erythema. NECK: Supple. No JVD, no carotid bruit. No lymphadenopathy or thyromegaly. LUNGS: Clear to auscultation. Percussion note normal. Chest symmetrical. HEART: S1, S2, no S3. No murmurs. No cyanosis or clubbing. No ascites. Pulses: Dorsalis pedis and posterior tibial pulses +1 to +2 bilaterally. ABDOMEN: Soft. Nontender. Bowel sounds active. No CVA tenderness. No mass felt. EXTREMITIES: No edema. Full range of motion of all extremities, equal. NEUROLOGIC: No focal deficit. Cranial nerves II through XII are grossly intact. No headache. No double vision. SKIN: Not dry. Intact. Turgor - normal. LYMPHATIC: No palpable lymph nodes/no lymphedema. MUSCULOSKELETAL: Normal joints with no swelling. Muscle tone is normal. LABS: Hemoglobin 13.8, hematocrit 41, WBC 7,700, normal differential. Creatinine 1.2, BUN 27, potassium 5.3, glucose 257. ASSESSMENT: 1. Severe lower back pain likely lumbar muscle sprain or spasm. 2. 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 3. Diabetes mellitus. 4. Hyperkalemia. 5. Chronic kidney disease. PLAN: 1. Continue the patient on Xanaflex. 2. Also continue the patient on Toradol IV and Tramadol p.o. along with Nubain. 3. She may need physical therapy; after controlling the pain we may get the patient started on it. 4. The patient is going to be on sliding scale with Accu-Check. 5. Cardiovascular status stable. TIME SPENT: More than 30 minutes. Plan and coordination of the patient's care discussed in the presence of nurse. VERONICA
[2021-05-11] MEDS: LANTUS SUBCUT SCH (20:40)
[2021-05-11] MEDS: LOVENOX SUBCUT SCH (20:41)
[2021-05-12 05:28] LABS: BASOPHILS % (AUTO) 0.1 % (0.0-3.0); HEMATOCRIT 38.6 % (37.0-47.0); IMMATURE GRANULOCYTE # (AUTO) 0.1 (0.0-1.0); IMMATURE GRANULOCYTE % (AUTO) 0.9 % (0.0-5.0); LYMPHOCYTES # (AUTO) 0.5 K/uL (0.60-3.4); LYMPHOCYTES % (AUTO) 4.7 (10.0-50.0); MEAN CORPUSCULAR HGB CONC 33.7 (31.8-35.4); MONOCYTES # (AUTO) 0.5 K/uL (0.4-2.0); NEUTROPHILS # (AUTO) 10.3 K/ul (2.0-6.9); NEUTROPHILS % (AUTO) 90.3 % (42.2-75.2); PLATELET COUNT 146 10^3/uL (140-440); RDW COEFFICIENT OF VARIATION 12.3 % (11.6-14.8); RED BLOOD COUNT 4.49 10^6/ul (4.20-5.40); WHITE BLOOD COUNT 11.43 K/ul (4.6-10.2)
[2021-05-12 05:36] LABS: ALANINE AMINOTRANSFERASE 44.3 U/L (0-35); ALBUMIN 3.73 g/dL (3.5-5.0); ALKALINE PHOSPHATASE 68.9 U/L (53-141); ASPARTATE AMINO TRANSFERASE 32.9 U/L (14-36); BILIRUBIN,TOTAL 0.31 mg/dL (0.2-1.3); BLOOD UREA NITROGEN 48.8 mg/dL (7-17); CALCIUM 9.09 mg/dL (8.4-10.2); CARBON DIOXIDE 26.2 mmol/L (22-30.0); CHLORIDE 101.4 mmol/L (98-107); CREATININE 1.39 mg/dL (0.60-1.30); GLUCOSE 335.2 mg/dL (74-106); POTASSIUM 5.1 mmol/L (3.5-5.1); SODIUM 134.3 mmol/L (134.5-145); TOTAL PROTEIN 5.97 g/dL (6.3-8.2)
[2021-05-12] MEDS: SYNTHROID PO SCH (05:50)
[2021-05-12] MEDS: HUMULIN R SUBCUT PRN ×4 (05:50→20:19)
[2021-05-12] MEDS: SOLU-MEDROL 125 MG IVP SCH (05:50)
[2021-05-12] MEDS: CALCIUM 500 + VIT D 5 MCG (200 IU) TABLET PO SCH (08:43)
[2021-05-12] MEDS: VITAMIN D PO SCH (08:43)
[2021-05-12] MEDS: NEURONTIN PO SCH ×2 (08:43→20:16)
[2021-05-12] MEDS: ZANAFLEX PO SCH ×3 (08:44→20:16)
[2021-05-12] MEDS: LIPITOR PO SCH (08:44)
[2021-05-12] MEDS: ZESTRIL PO SCH (08:44)
[2021-05-12] MEDS: DITROPAN PO SCH (08:44)
[2021-05-12] MEDS: ULTRAM PO SCH ×3 (08:44→20:16)
[2021-05-12] MEDS: HUMALOG SUBCUT SCH ×3 (08:44→17:28)
--- NOTE | 2021-05-12 10:22 | PCM.PROG ---
Attending Provider: ATTENDING PROVIDER: Dr. ASHTYN SCHAEFFER DATE OF SERVICE: 05/12/21 SUBJECTIVE: This 76 year old /WHITE F was hospitalized 05/09/21 with acute low back pain started as she was getting out of recliner. Back pain is better. She is up and about. The patient is also being treated for UTI/E. coli with Rocephin. REVIEW OF SYSTEMS: CONSTITUTIONAL: No night sweats. No fatigue, malaise, lethargy. No fever or chills. HEENT: Eyes: No visual changes. No eye pain. No eye discharge. ENT: No runny nose. No epistaxis. No sinus pain. No odynophagia. No congestion. RESPIRATORY: No cough, no congestion. No hemoptysis. No shortness of breath. CARDIOVASCULAR: No angina symptoms. No CHF symptoms. No atypical chest pain for CAD. No palpitations. No orthopnea.. GASTROINTESTINAL: No abdominal pain. No nausea or vomiting. No diarrhea or constipation. No hematemesis. No hematochezia. GENITOURINARY: No urgency. No frequency. No dysuria. No hematuria. No obstructive symptoms. No discharge. No pain. No significant abnormal bleeding. MUSCULOSKELETAL: Mild back pain. NEUROLOGICAL: Awake, alert, oriented to time, place and person. No headache. No neck pain. No syncope. No seizures. No dizziness. PSYCHIATRIC: Not anxious. No depression. No suicidal thoughts. No homicidal thoughts. SKIN: No rash. No lesions. No wounds. ENDOCRINE: No unexplained weight loss. No weight gain. HEMATOLOGIC/LYMPHATIC: No anemia. No purpura. No petechiae. No prolonged or excessive bleeding. No palpable lymph nodes. PHYSICAL EXAMINATION: GENERAL: The patient is awake, alert and oriented, lying/sitting in bed in no distress. VITAL SIGNS: Temperature 97.5 F, Pulse 48, Respiratory Rate 18, BP 119/65, Pulse Ox 97% HEENT: Head normocephalic, atraumatic. Eyes: Extraocular muscles are intact. Pupils are equal, round and reactive to light and accommodation. Ears: No lesions. Nose appeared normal. Throat: No exudate or erythema. NECK: Supple. No JVD, no carotid bruit. No lymphadenopathy or thyromegaly. LUNGS: Clear to auscultation. Percussion note normal. Chest symmetrical. HEART: S1, S2, no S3. No murmurs. No cyanosis or clubbing. No ascites. Pulses: Dorsalis pedis and posterior tibial pulses +1 to +2 both sides. ABDOMEN: Soft. Non-tender. Bowel sounds active. No CVA tenderness. No mass felt. EXTREMITIES: No edema. Full range of motion of all extremities, equal. NEUROLOGIC: No focal deficit. Cranial nerves II through XII are grossly intact. No headache, no double vision or headache. SKIN: Warm and dry. Intact. Turgor-normal. LYMPHATIC: No palpable lymph nodes/no lymphedema. MUSCULOSKELETAL: Normal joints with no swelling. Muscle tone is normal. LAB REVIEW: 05/12/21 04:55 05/12/21 04:55 05/12/21 04:55: Sodium 134.3 L, Potassium 5.10, Chloride 101.4, Carbon Dioxide 26.2, Anion Gap 11.80, BUN 48.8 H, Creatinine 1.39 H, Estimated GFR (MDRD) 37.00, BUN/Creatinine Ratio 35.10, Glucose 335.2 H, Calcium 9.09, Total Bilirubin 0.31, AST 32.9, ALT 44.3 H, Alkaline Phosphatase 68.9, Total Protein 5.97 L, Albumin 3.73, Globulin 2.24, Albumin/Globulin Ratio 1.66 05/12/21 04:55: WBC 11.43 H, RBC 4.49, Hgb 13.0, Hct 38.6, MCV 86.0, MCH 29.0, MCHC 33.7, RDW Coeff of Cortez 12.3, Plt Count 146, Immature Gran % (Auto) 0.9, Neut % (Auto) 90.3 H, Lymph % (Auto) 4.7 L, Granite % (Auto) 4.0, Eos % (Auto) 0.0, Baso % (Auto) 0.1, Neut # (Auto) 10.3 H, Lymph # (Auto) 0.5 L, Granite # (Auto) 0.5, Eos # (Auto) 0.0, Baso # (Auto) 0.0, Immature Gran # (Auto) 0.1 ASSESSMENT: Please see below. 1. Lumbar muscle spasm, lower back pain with DJD of the spine. 2. UTI with E. Coli. 3. Chronic kidney disease followed by Kylee Crawley/JAYLEN Hawkins. 4. Diabetes mellitus. PLAN: 1. Discontinue IV Solu-Medrol. 2. Prednisone 20 mg daily. 3. Continue Rocephin. 4. Continue to monitor CBC, CMP. 5. Sliding scale with coverage. Sugar seems to be out of control from steroids. 6. Continue with PT/OT. Plan and coordination of the patient's care discussed in the presence of Sane Rn and nurse. CONDITION: Stable SCRIBED BY: Andres WESLEY scribed while in presence of service performed by Dr. ASHTYN SCHAEFFER on 05/12/21 ([id number])
[2021-05-12] MEDS: ROCEPHIN 1 GM/50 ML D5W 1 GM/50 ML BAG IV SCH (10:44)
[2021-05-12] MEDS: LOVENOX SUBCUT SCH (20:17)
[2021-05-12] MEDS: LANTUS SUBCUT SCH (20:19)
[2021-05-13 05:12] LABS: BASOPHILS % (AUTO) 0.1 % (0.0-3.0); HEMATOCRIT 41.6 % (37.0-47.0); HEMOGLOBIN 13.8 g/dl (12.0-16.0); IMMATURE GRANULOCYTE # (AUTO) 0.1 (0.0-1.0); IMMATURE GRANULOCYTE % (AUTO) 0.7 % (0.0-5.0); LYMPHOCYTES # (AUTO) 0.8 K/uL (0.60-3.4); LYMPHOCYTES % (AUTO) 6.1 (10.0-50.0); MEAN CORPUSCULAR HEMOGLOBIN 28.9 pg (27.0-31.0); MEAN CORPUSCULAR HGB CONC 33.2 (31.8-35.4); MONOCYTES # (AUTO) 1.3 K/uL (0.4-2.0); MONOCYTES % (AUTO) 9.2 (0-10); NEUTROPHILS # (AUTO) 11.4 K/ul (2.0-6.9); NEUTROPHILS % (AUTO) 83.9 % (42.2-75.2); PLATELET COUNT 156 10^3/uL (140-440); RDW COEFFICIENT OF VARIATION 12.4 % (11.6-14.8); RED BLOOD COUNT 4.78 10^6/ul (4.20-5.40); WHITE BLOOD COUNT 13.53 K/ul (4.6-10.2)
[2021-05-13 05:26] LABS: ALANINE AMINOTRANSFERASE 84.2 U/L (0-35); ALBUMIN 3.94 g/dL (3.5-5.0); ALKALINE PHOSPHATASE 69.3 U/L (53-141); ASPARTATE AMINO TRANSFERASE 41.7 U/L (14-36); BILIRUBIN,TOTAL 0.39 mg/dL (0.2-1.3); BLOOD UREA NITROGEN 51.2 mg/dL (7-17); CALCIUM 9.15 mg/dL (8.4-10.2); CARBON DIOXIDE 28.2 mmol/L (22-30.0); CHLORIDE 102.4 mmol/L (98-107); CREATININE 1.45 mg/dL (0.60-1.30); GLUCOSE 238.7 mg/dL (74-106); POTASSIUM 4.96 mmol/L (3.5-5.1); SODIUM 136.3 mmol/L (134.5-145); TOTAL PROTEIN 6.26 g/dL (6.3-8.2)
[2021-05-13] MEDS: SYNTHROID PO SCH (05:34)
[2021-05-13 05:44] LABS: MAGNESIUM 2.19 mg/dL (1.6-2.3); URIC ACID 6.22 mg/dL (2.5-6.2)
[2021-05-13] MEDS: HUMULIN R SUBCUT PRN ×2 (06:00→21:02)
[2021-05-13] MEDS: DITROPAN PO SCH (09:18)
[2021-05-13] MEDS: ZANAFLEX PO SCH ×3 (09:18→21:06)
[2021-05-13] MEDS: ROCEPHIN 1 GM/50 ML D5W 1 GM/50 ML BAG IV SCH (09:18)
[2021-05-13] MEDS: ULTRAM PO SCH ×3 (09:18→21:06)
[2021-05-13] MEDS: VITAMIN D PO SCH (09:19)
[2021-05-13] MEDS: CALCIUM 500 + VIT D 5 MCG (200 IU) TABLET PO SCH (09:19)
[2021-05-13] MEDS: LIPITOR PO SCH (09:19)
[2021-05-13] MEDS: PREDNISONE PO SCH (09:19)
[2021-05-13] MEDS: ZESTRIL PO SCH (09:19)
[2021-05-13] MEDS: NEURONTIN PO SCH ×2 (09:19→21:06)
[2021-05-13] MEDS: HUMALOG SUBCUT SCH ×3 (09:20→16:37)
[2021-05-13] MEDS: LANTUS SUBCUT SCH (21:03)
[2021-05-13] MEDS: LOVENOX SUBCUT SCH (21:04)
[2021-05-14] MEDS: SYNTHROID PO SCH (05:44)
[2021-05-14 06:12] LABS: BASOPHILS % (AUTO) 0.1 % (0.0-3.0); EOSINOPHILS # (AUTO) 0.1 K/ul (0.0-0.7); EOSINOPHILS % (AUTO) 0.9 % (0.0-7.0); HEMATOCRIT 41.7 % (37.0-47.0); HEMOGLOBIN 13.8 g/dl (12.0-16.0); IMMATURE GRANULOCYTE # (AUTO) 0.1 (0.0-1.0); IMMATURE GRANULOCYTE % (AUTO) 0.6 % (0.0-5.0); LYMPHOCYTES # (AUTO) 1.5 K/uL (0.60-3.4); LYMPHOCYTES % (AUTO) 14.2 (10.0-50.0); MEAN CORPUSCULAR HEMOGLOBIN 28.9 pg (27.0-31.0); MEAN CORPUSCULAR HGB CONC 33.1 (31.8-35.4); MEAN CORPUSCULAR VOLUME 87.4 fl (81.0-99.0); MONOCYTES # (AUTO) 1.3 K/uL (0.4-2.0); MONOCYTES % (AUTO) 12.3 (0-10); NEUTROPHILS # (AUTO) 7.5 K/ul (2.0-6.9); NEUTROPHILS % (AUTO) 71.9 % (42.2-75.2); PLATELET COUNT 151 10^3/uL (140-440); RDW COEFFICIENT OF VARIATION 12.6 % (11.6-14.8); RED BLOOD COUNT 4.77 10^6/ul (4.20-5.40); WHITE BLOOD COUNT 10.48 K/ul (4.6-10.2)
[2021-05-14] MEDS: HUMULIN R SUBCUT PRN ×2 (06:15→20:48)
[2021-05-14 06:26] LABS: ALANINE AMINOTRANSFERASE 103.1 U/L (0-35); ALBUMIN 3.65 g/dL (3.5-5.0); ALKALINE PHOSPHATASE 69.1 U/L (53-141); ASPARTATE AMINO TRANSFERASE 41.9 U/L (14-36); BILIRUBIN,TOTAL 0.46 mg/dL (0.2-1.3); BLOOD UREA NITROGEN 49.3 mg/dL (7-17); CALCIUM 9.44 mg/dL (8.4-10.2); CARBON DIOXIDE 32.8 mmol/L (22-30.0); CREATININE 1.41 mg/dL (0.60-1.30); GLUCOSE 203.5 mg/dL (74-106); POTASSIUM 5.16 mmol/L (3.5-5.1); SODIUM 135.6 mmol/L (134.5-145); TOTAL PROTEIN 5.79 g/dL (6.3-8.2)
[2021-05-14] MEDS: ULTRAM PO SCH ×3 (09:02→20:41)
[2021-05-14] MEDS: HUMALOG SUBCUT SCH ×3 (09:02→16:45)
[2021-05-14] MEDS: NEURONTIN PO SCH ×2 (09:02→20:41)
[2021-05-14] MEDS: ZESTRIL PO SCH (09:02)
[2021-05-14] MEDS: LIPITOR PO SCH (09:02)
[2021-05-14] MEDS: DITROPAN PO SCH (09:02)
[2021-05-14] MEDS: VITAMIN D PO SCH (09:02)
[2021-05-14] MEDS: CALCIUM 500 + VIT D 5 MCG (200 IU) TABLET PO SCH (09:02)
[2021-05-14] MEDS: PREDNISONE PO SCH (09:02)
[2021-05-14] MEDS: ZANAFLEX PO SCH ×3 (09:02→20:41)
[2021-05-14] MEDS: ROCEPHIN 1 GM/50 ML D5W 1 GM/50 ML BAG IV SCH (13:06)
[2021-05-14 13:11] LABS: CHOLESTEROL 135.2 mg/dL (0-200); TRIGLYCERIDES 112.6 mg/dL (0-150)
[2021-05-14] MEDS: OMNICEF PO SCH ×2 (13:14→20:41)
[2021-05-14 15:29] LABS: THYROID STIMULATING HORMONE 1.42 uIU/L (0.465-4.68)
[2021-05-14] MEDS: LOVENOX SUBCUT SCH (20:43)
[2021-05-14] MEDS: LANTUS SUBCUT SCH (20:48)
[2021-05-15 05:22] LABS: BASOPHILS % (AUTO) 0.2 % (0.0-3.0); EOSINOPHILS # (AUTO) 0.3 K/ul (0.0-0.7); EOSINOPHILS % (AUTO) 2.4 % (0.0-7.0); HEMATOCRIT 44.4 % (37.0-47.0); HEMOGLOBIN 14.9 g/dl (12.0-16.0); IMMATURE GRANULOCYTE # (AUTO) 0.1 (0.0-1.0); IMMATURE GRANULOCYTE % (AUTO) 0.5 % (0.0-5.0); LYMPHOCYTES # (AUTO) 1.7 K/uL (0.60-3.4); LYMPHOCYTES % (AUTO) 16.3 (10.0-50.0); MEAN CORPUSCULAR HEMOGLOBIN 29.2 pg (27.0-31.0); MEAN CORPUSCULAR HGB CONC 33.6 (31.8-35.4); MEAN CORPUSCULAR VOLUME 86.9 fl (81.0-99.0); MONOCYTES # (AUTO) 1.2 K/uL (0.4-2.0); MONOCYTES % (AUTO) 11.9 (0-10); NEUTROPHILS % (AUTO) 68.7 % (42.2-75.2); PLATELET COUNT 159 10^3/uL (140-440); RDW COEFFICIENT OF VARIATION 12.4 % (11.6-14.8); RED BLOOD COUNT 5.11 10^6/ul (4.20-5.40); WHITE BLOOD COUNT 10.21 K/ul (4.6-10.2)
[2021-05-15 05:37] LABS: ALANINE AMINOTRANSFERASE 104.5 U/L (0-35); ALBUMIN 3.58 g/dL (3.5-5.0); ALKALINE PHOSPHATASE 72.3 U/L (53-141); ASPARTATE AMINO TRANSFERASE 37.9 U/L (14-36); BILIRUBIN,TOTAL 0.6 mg/dL (0.2-1.3); BLOOD UREA NITROGEN 47.2 mg/dL (7-17); CALCIUM 9.53 mg/dL (8.4-10.2); CHLORIDE 101.5 mmol/L (98-107); CREATININE 1.39 mg/dL (0.60-1.30); GLUCOSE 165.5 mg/dL (74-106); POTASSIUM 5.34 mmol/L (3.5-5.1); SODIUM 137.9 mmol/L (134.5-145); TOTAL PROTEIN 5.82 g/dL (6.3-8.2)
[2021-05-15] MEDS: SYNTHROID PO SCH (06:28)
[2021-05-15] MEDS: HUMULIN R SUBCUT PRN ×4 (06:28→20:27)
[2021-05-15] MEDS: CALCIUM 500 + VIT D 5 MCG (200 IU) TABLET PO SCH (09:14)
[2021-05-15] MEDS: ZANAFLEX PO SCH ×3 (09:14→20:30)
[2021-05-15] MEDS: PREDNISONE PO SCH (09:14)
[2021-05-15] MEDS: OMNICEF PO SCH ×2 (09:14→20:29)
[2021-05-15] MEDS: DITROPAN PO SCH (09:14)
[2021-05-15] MEDS: ULTRAM PO SCH ×3 (09:14→20:29)
[2021-05-15] MEDS: NEURONTIN PO SCH ×2 (09:15→20:29)
[2021-05-15] MEDS: HUMALOG SUBCUT SCH ×3 (09:15→17:38)
[2021-05-15] MEDS: LIPITOR PO SCH (09:15)
[2021-05-15] MEDS: VITAMIN D PO SCH (09:15)
[2021-05-15] MEDS: ZESTRIL PO SCH (09:15)
--- NOTE | 2021-05-15 13:21 | PN ---
DATE OF SERVICE: 05/11/2021 SUBJECTIVE: The patient was seen and examined with the Nurse Practitioner. The patient's back pain is a lot better. Her is resting better. The patient's muscles spasms seems to be under control. TIME SPENT: More than 30 minutes. Plan and coordination of the patient's care discussed in the presence of nurse. VERONICA
[2021-05-15] MEDS: LOVENOX SUBCUT SCH (20:26)
[2021-05-15] MEDS: LANTUS SUBCUT SCH (20:26)
[2021-05-16 03:27] LABS: URINE CREATININE 44.9 mg/dL (Not Estab.); URINE MICROALBUMIN 58.8 ug/mL (Not Estab.)
[2021-05-16 05:14] LABS: BASOPHILS % (AUTO) 0.2 % (0.0-3.0); EOSINOPHILS # (AUTO) 0.4 K/ul (0.0-0.7); EOSINOPHILS % (AUTO) 4.1 % (0.0-7.0); HEMOGLOBIN 14.5 g/dl (12.0-16.0); IMMATURE GRANULOCYTE # (AUTO) 0.1 (0.0-1.0); IMMATURE GRANULOCYTE % (AUTO) 0.6 % (0.0-5.0); LYMPHOCYTES # (AUTO) 2.4 K/uL (0.60-3.4); LYMPHOCYTES % (AUTO) 22.5 (10.0-50.0); MEAN CORPUSCULAR HEMOGLOBIN 29.1 pg (27.0-31.0); MEAN CORPUSCULAR HGB CONC 33.7 (31.8-35.4); MEAN CORPUSCULAR VOLUME 86.2 fl (81.0-99.0); MONOCYTES # (AUTO) 1.2 K/uL (0.4-2.0); MONOCYTES % (AUTO) 11.7 (0-10); NEUTROPHILS # (AUTO) 6.5 K/ul (2.0-6.9); NEUTROPHILS % (AUTO) 60.9 % (42.2-75.2); PLATELET COUNT 171 10^3/uL (140-440); RDW COEFFICIENT OF VARIATION 12.4 % (11.6-14.8); RED BLOOD COUNT 4.99 10^6/ul (4.20-5.40)
[2021-05-16 05:19] VITALS: BP 120/74; TEMP 97.4
[2021-05-16 05:29] LABS: ALANINE AMINOTRANSFERASE 86.4 U/L (0-35); ALBUMIN 3.28 g/dL (3.5-5.0); ASPARTATE AMINO TRANSFERASE 29.8 U/L (14-36); BILIRUBIN,TOTAL 0.66 mg/dL (0.2-1.3); BLOOD UREA NITROGEN 40.8 mg/dL (7-17); CALCIUM 9.26 mg/dL (8.4-10.2); CARBON DIOXIDE 38.5 mmol/L (22-30.0); CHLORIDE 101.2 mmol/L (98-107); CREATININE 1.31 mg/dL (0.60-1.30); GLUCOSE 98.1 mg/dL (74-106); POTASSIUM 5.25 mmol/L (3.5-5.1); SODIUM 138.9 mmol/L (134.5-145); TOTAL PROTEIN 5.32 g/dL (6.3-8.2)
[2021-05-16] MEDS: SYNTHROID PO SCH (05:34)
[2021-05-16] MEDS ORDERED: KAYEXALATE SUSP PO ONE (08:49)
[2021-05-16] MEDS ORDERED: PYRIDIUM PO SCH (09:00)
--- NOTE | 2021-05-16 09:41 | PCM.PROG ---
Attending Provider: ATTENDING PROVIDER: Dr. ASHTYN LUJAN This patient is seen with Sanam Bryan, Nurse Practitioner. DATE OF SERVICE: 05/16/21 SUBJECTIVE: This 76 year old /WHITE F was hospitalized 05/09/21. The patient is resting comfortably. Still having urinary pressure. Back pain has improved. States ready to go home. Would benefit from Home Health for PT, OT and nursing. REVIEW OF SYSTEMS: CONSTITUTIONAL: No night sweats. No fatigue, malaise, lethargy. No fever or chills. HEENT: Eyes: No visual changes. No eye pain. No eye discharge. ENT: No runny nose. No epistaxis. No sinus pain. No odynophagia. No congestion. RESPIRATORY: No cough, no congestion. No hemoptysis. No shortness of breath. CARDIOVASCULAR: No angina symptoms. No CHF symptoms. No atypical chest pain for CAD. No palpitations. No orthopnea.. GASTROINTESTINAL: No abdominal pain. No nausea or vomiting. No diarrhea or constipation. No hematemesis. No hematochezia. GENITOURINARY: No urgency. No frequency. Dysuria. No hematuria. No obstructive symptoms. No discharge. No pain. No significant abnormal bleeding. MUSCULOSKELETAL: No musculoskeletal pain; no joint swelling. Back Pain. NEUROLOGICAL: Awake, alert, oriented to time, place and person. No headache. No neck pain. No syncope. No seizures. No dizziness. PSYCHIATRIC: Not anxious. No depression. No suicidal thoughts. No homicidal t houghts. SKIN: No rash. No lesions. No wounds. ENDOCRINE: No unexplained weight loss. No weight gain. HEMATOLOGIC/LYMPHATIC: No anemia. No purpura. No petechiae. No prolonged or excessive bleeding. No palpable lymph nodes. PHYSICAL EXAMINATION: GENERAL: The patient is awake, alert and oriented, lying in bed in no distress. VITAL SIGNS: Temperature 97.4 F, Pulse 64, Respiratory Rate 18, BP 120/74, Pulse Ox 98% HEENT: Head normocephalic, atraumatic. Eyes: Extraocular muscles are intact. Pupils are equal, round and reactive to light and accommodation. Ears: No lesions. Nose appeared normal. Throat: No exudate or erythema. NECK: Supple. No JVD, no carotid bruit. No lymphadenopathy or thyromegaly. LUNGS: Diminished breath sounds. Clear to auscultation. Percussion note normal. Chest symmetrical. HEART: S1, S2, no S3. No murmurs. No cyanosis or clubbing. No ascites. Pulses: Dorsalis pedis and posterior tibial pulses +1 to +2 both sides. ABDOMEN: Soft. Non-tender. Bowel sounds active. No CVA tenderness. No mass felt. EXTREMITIES: No edema. Full range of motion of all extremities, equal. NEUROLOGIC: No focal deficit. Cranial nerves II through XII are grossly intact. No headache. No double vision. SKIN: Not dry. Intact. Turgor-normal. LYMPHATIC: No palpable lymph nodes/no lymphedema. MUSCULOSKELETAL: Normal joints with no swelling. Muscle tone is normal. LAB REVIEW: 05/16/21 04:40 05/16/21 04:40 05/16/21 04:40: Sodium 138.9, Potassium 5.25 H, Chloride 101.2, Carbon Dioxide 38.5 H, Anion Gap 4.45, BUN 40.8 H, Creatinine 1.31 H, Estimated GFR (MDRD) 39.00, BUN/Creatinine Ratio 31.14, Glucose 98.1, Calcium 9.26, Total Bilirubin 0.66, AST 29.8, ALT 86.4 H, Alkaline Phosphatase 62.0, Total Protein 5.32 L, Albumin 3.28 L, Globulin 2.04, Albumin/Globulin Ratio 1.60 05/16/21 04:40: WBC 10.60 H, RBC 4.99, Hgb 14.5, Hct 43.0, MCV 86.2, MCH 29.1, MCHC 33.7, RDW Coeff of [place] 12.4, Plt Count 171, Immature Gran % (Auto) 0.6, Neut % (Auto) 60.9, Lymph % (Auto) 22.5, [place] % (Auto) 11.7 H, Eos % (Auto) 4.1, Baso % (Auto) 0.2, Neut # (Auto) 6.5, Lymph # (Auto) 2.4, [place] # (Auto) 1.2, Eos # (Auto) 0.4, Baso # (Auto) 0.0, Immature Gran # (Auto) 0.1 05/13/21 18:10: Urine Creatinine 44.9, Urine Microalbumin 58.8, Microalb/Creat Ratio 131 H ASSESSMENT: Please see below. 1. Acute low back pain, improved 2. UTI positive e-coli 3. Chronic kidney disease stage 3 4. Diabetes Mellitus type II PLAN: 1. Discharge home 2. Kayexalate 12.5mg once before discharge 3. Omnicef 300mg BID for 5 days 4. The patient would benefit from PT, OT and nursing. We will refer to [facility]. The patient would benefit from lift chair. Plan and coordination of the patient's care discussed in the presence of Harsha bowman and nurse. SCRIBED BY: Andres ARAUZ scribed while in presence of service performed by Dr. Lujan/Sanam Bryan APRN on 05/16/21 ([id number])
[2021-05-16] MEDS: ULTRAM PO SCH ×2 (10:03→15:42)
[2021-05-16] MEDS: LIPITOR PO SCH (10:03)
[2021-05-16] MEDS: NEURONTIN PO SCH (10:04)
[2021-05-16] MEDS: OMNICEF PO SCH (10:04)
[2021-05-16] MEDS: PREDNISONE PO SCH (10:04)
[2021-05-16] MEDS: CALCIUM 500 + VIT D 5 MCG (200 IU) TABLET PO SCH (10:04)
[2021-05-16] MEDS: VITAMIN D PO SCH (10:04)
[2021-05-16] MEDS: ZANAFLEX PO SCH ×2 (10:04→15:42)
[2021-05-16] MEDS: ZESTRIL PO SCH (10:05)
[2021-05-16] MEDS: DITROPAN PO SCH (10:05)
[2021-05-16] MEDS: HUMALOG SUBCUT SCH ×2 (10:07→12:04)
--- NOTE | 2021-05-16 12:02 | US ---
EXAM: Ultrasound bilateral carotid duplex HISTORY: Dizziness and hypertension COMPARISON: None TECHNIQUE: Sonographic and color Doppler evaluation of the carotids were performed. FINDINGS: The right carotid is patent in appearance with moderate scattered atherosclerotic plaque visualized. The right ICA peak systolic velocity measures 85 cm/sec which is normal. The ICA / CCA peak systolic velocity ratio is 1.0 and ICA end-diastolic velocity is 14 cm/sec. The left carotid is patent in appearance with scattered moderate atherosclerotic plaque visualized. The left ICA peak systolic velocity measures 57 cm/sec which is within normal limits. The left ICA / CCA peak systolic velocity ratio is 0.9 and ICA end-diastolic velocity is 13 cm/sec. Vertebral arteries demonstrate antegrade flow bilaterally. Color Doppler and wave spectral evaluation are within normal limits. IMPRESSION: Bilateral moderate scattered atherosclerotic disease with no evidence of hemodynamically significant stenosis.
[2021-05-16] MEDS: HUMULIN R SUBCUT PRN (12:03)
--- NOTE | 2021-05-16 13:09 | CM.DICTOOL ---
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 ANEMIA HTN / LVH DYSLIPIDEMIA GERD TYPE 2 DM HYPOTHYROIDISM KIDNEY DISEASE RENAL FAILURE NEUROPATHY OSTEOPOROSIS MORBID OBESITY BMI 40.0-44.9 CHRONIC BACK PAIN SURGICAL HISTORY: TUBAL LIGATION APPENDECTOMY D&C FOOT SURGERY HYSTERECTOMY CODE STATUS: DO NOT RESUSCITATE LAST VITALS Temp Pulse Resp BP Pulse Ox 97.4 F L 64 18 120/74 98 05/16/21 05:17 05/16/21 05:17 05/16/21 05:17 05/16/21 05:17 05/16/21 05:17 TAKE THESE MEDICATIONS AT HOME ASPIRIN-Acetaminophen- caffeine ( extra strength pain reliever ) PO Q4-6 hours PRN PRN Reason: Analgesia Atorvastatin Calcium (Atorvastatin Calcium 20 Mg Tablet) 20 mg PO DAILY [facility] Last Admin: 05/16/21 10:03 Dose: 20 mg Documented by: Calcium/Vitamin D (Calcium Carbonate/Vitamin D3 500 Mg/5 Mcg(200iu) 1 Each Tablet) 1 each PO DAILY [facility] Last Admin: 05/16/21 10:04 Dose: 1 each Documented by: Cefdinir (Cefdinir 300 Mg Capsule) 300 mg PO Q12HR [facility] THIS PM AND THEN 5 MORE DAYS ( TOTAL OF 11 DOSES ) Stop: 05/17/21 12:59 Last Admin: 05/16/21 10:04 Dose: 300 mg Documented by: Cholecalciferol (Cholecalciferol (Vitamin D3) 1,000 Unit (25 Mcg) Tablet) 1,000 unit PO DAILY [facility] Last Admin: 05/16/21 10:04 Dose: 1,000 unit Documented by: Gabapentin (Gabapentin 100 Mg Capsule) 200 mg PO BID [facility] Last Admin: 05/16/21 10:04 Dose: 200 mg Documented by: Insulin Glargine (Insulin Glargine,Hum.Rec.Anlog 100 Units/Ml) 25 unit SUBCUT BEDTIME [facility] Last Admin: 05/15/21 20:26 Dose: 25 unit Documented by: Insulin Human Lispro (Insulin Lispro 100 Unit/Ml (3 Ml) Vial) 5 unit SUBCUT TIDWM [facility] Last Admin: 05/16/21 12:04 Dose: 5 unit Documented by: Levothyroxine Sodium (Levothyroxine Sodium 75 Mcg Tablet) 75 mcg PO QDAC [facility] Last Admin: 05/16/21 05:34 Dose: 75 mcg Documented by: Lisinopril (Lisinopril 10 Mg Tablet) 10 mg PO DAILY [facility] Last Admin: 05/16/21 10:05 Dose: 10 mg Documented by: Nystatin (Nystatin 15 Gm Powder) 1 applic TP QID PRN PRN Reason: Skin excoriation Oxybutynin Chloride (Oxybutynin Chloride 5 Mg Tablet) 5 mg PO DAILY [facility] Last Admin: 05/16/21 10:05 Dose: 5 mg Documented by: Phenazopyridine HCl (Phenazopyridine Hcl 100 Mg Tablet) 100 mg PO BID [facility] X 2 DAYS Stop: 05/18/21 21:01 Last Admin: 05/16/21 10:04 Dose: 100 mg Documented by: Tramadol HCl (Tramadol Hcl 50 Mg Tablet) 50 mg PO TID [facility] Last Admin: 05/16/21 10:03 Dose: 50 mg Documented by: CICLOPIROX ONE APPLICATION TOPICAL BID ZANAFLEX 4 MG 1 TABLET PO BID PRN TRAMADOL 50 MG 1 TABLET PO BID PRN ALLERGIES aspirin Adverse Reaction (Verified 05/09/21 15:14) codeine Adverse Reaction (Verified 05/09/21 15:14) diazepam [From Valium] Adverse Reaction (Verified 05/09/21 15:14) latex Adverse Reaction (Verified 05/09/21 15:14) Penicillins Adverse Reaction (Verified 05/09/21 15:14) DISCONTINUED MEDICATIONS NONE NEW PRESCRIPTIONS: OMNICEF 300 MG PO Q 12 HOURS X TONIGHT AT HOME AND 5 MORE DAYS PYRIDIUM 100 MG PO BID X 3 MORE DOSES ZANAFLEX 4 MG 1 TABLET PO BID PRN TRAMADOL 50 MG 1 TABLET PO BID PRN SMOKING: N/A DISEASE SPECIFIC EDUCATION: UTI BACK PAIN ACTIVITY COVID LAB REVIEW: 05/16/21 04:40 05/16/21 04:40 05/16/21 04:40: Sodium 138.9, Potassium 5.25 H, Chloride 101.2, Carbon Dioxide 38.5 H, Anion Gap 4.45, BUN 40.8 H, Creatinine 1.31 H, Estimated GFR (MDRD) 39.00, BUN/Creatinine Ratio 31.14, Glucose 98.1, Calcium 9.26, Total Bilirubin 0.66, AST 29.8, ALT 86.4 H, Alkaline Phosphatase 62.0, Total Protein 5.32 L, Albumin 3.28 L, Globulin 2.04, Albumin/Globulin Ratio 1.60 05/16/21 04:40: WBC 10.60 H, RBC 4.99, Hgb 14.5, Hct 43.0, MCV 86.2, MCH 29.1, MCHC 33.7, RDW Coeff of [place] 12.4, Plt Count 171, Immature Gran % (Auto) 0.6, Neut % (Auto) 60.9, Lymph % (Auto) 22.5, [place] % (Auto) 11.7 H, Eos % (Auto) 4.1, Baso % (Auto) 0.2, Neut # (Auto) 6.5, Lymph # (Auto) 2.4, [place] # (Auto) 1.2, Eos # (Auto) 0.4, Baso # (Auto) 0.0, Immature Gran # (Auto) 0.1 05/13/21 18:10: Urine Creatinine 44.9, Urine Microalbumin 58.8, Microalb/Creat Ratio 131 H PLAN: DISCHARGE: HOME TODAY WITH Email Data Source [employer] AND [facility] SECONDARY INSURANCE [facility] TO TAKE CARE OF OBTAINING A LIFT CHAIR, PRESCRIPTION SENT ACTIVITY: UP TOLERATED WITH FREQUENT REST PERIODS USE WHEELED WALKER AND FOLLOW HOME HEALTH GUIDELINES DIET: CONSISTENT CARBOHYDRATES MD FOLLOW UP: SEE DR. SCHAEFFER/ JOHN CALLAHAN APRN/ MARTIN PEREZ APRN IN THE OFFICE ON Saturday @ 1030 AM CODE STATUS: DO NOT RESUSCITATE MRS HARTLEY IS ALERT AND ORIENTED X 4. CHRONIC BACK PAIN THAT HAD GOTTEN WORSE, NOW IMPROVED. SHE IS ABLE TO SIT AND STAND ON HER OWN. SHE IS UP WITH A WHEELED WALKER SHE WALKED WITH THERAPY 90 FEET X 2 WITH WHEELED WALKER AND SBA/SUPERVISION. SHE HAS HAD INTERMITTENT BURNING UPON URINATION. CONTINENT OF BOWEL AND BLADDER, WITH DRIBBLING AT TIMES. NUTRITIONAL INTAKE GOOD AND FLUID INTAKE SUBSTANTIAL.SKIN WARM DRY AND INTACT. SHE LIVES ALONE WITH [facility] AND WILL GO HOME WITH [facility], PT, OT AND SN. MD JOHN POWELL APRN ALYCE HANNAN, APRN
--- NOTE | 2021-05-16 13:10 | PN ---
DATE OF SERVICE: 05/13/21 SUBJECTIVE: The patient was seen and examined this morning. The patient's condition has improved. She is sitting up in the chair and waiting for breakfast. REVIEW OF SYSTEMS: CONSTITUTIONAL: No night sweats. No fatigue, malaise, lethargy. No fever or chills. HEENT: Eyes: No visual changes. No eye pain. No eye discharge. ENT: No runny nose. No epistaxis. No sinus pain. No sore throat. No odynophagia. No congestion. RESPIRATORY: No cough, no congestion. No hemoptysis. No shortness of breath. CARDIOVASCULAR: No angina symptoms. No CHF symptoms. No atypical chest pain for CAD. No palpitations. No PND. No orthopnea. GASTROINTESTINAL: No abdominal pain. No nausea or vomiting. No diarrhea or constipation. No hematemesis. No hematochezia. GENITOURINARY: No urgency. No frequency. No dysuria. No hematuria. No obstructive symptoms. No discharge. No pain. No significant abnormal bleeding. MUSCULOSKELETAL: The pain in the back is much less. Generalized arthritic pain is less. NEUROLOGICAL: No headache. No neck pain. No syncope. No seizures. No dizziness. PSYCHIATRIC: Not anxious. No depression. No suicidal thoughts. No homicidal thoughts. SKIN: No rash. No lesions. No wounds. ENDOCRINE: No unexplained weight loss. No weight gain. HEMATOLOGIC/LYMPHATIC: No anemia. No purpura. No petechiae. No prolonged or excessive bleeding. No palpable lymph nodes. PHYSICAL EXAMINATION: HEENT: Head normocephalic, atraumatic. Eyes: Extraocular muscles are intact. Pupils are equal, round and reactive to light and accommodation. Ears: No lesions. Nose appeared normal. Throat: No exudate or erythema. NECK: Supple. No JVD, no carotid bruit. No lymphadenopathy or thyromegaly. LUNGS: Decreased breath sounds but clear to auscultation. Percussion note normal. Chest symmetrical. HEART: S1, S2, no S3. No murmurs. No cyanosis or clubbing. No ascites. Pulses: Dorsalis pedis and posterior tibial pulses +1 to +2 bilaterally. ABDOMEN: Soft. Nontender. Bowel sounds active. No CVA tenderness. No mass felt. EXTREMITIES: No edema. Full range of motion of all extremities, equal. NEUROLOGIC: No focal deficit. Cranial nerves II through XII are grossly intact. No headache. No double vision. SKIN: Not dry. Intact. Turgor - normal. LYMPHATIC: No palpable lymph nodes/no lymphedema. MUSCULOSKELETAL: Normal joints with no swelling. Muscle tone is normal. ASSESSMENT: 1. Severe lumbar sprain seems to have resolved. 2. UTI seems to be under control with no fever, no chills. 3. Diabetes being controlled with sliding scale and Accu-Check with coverage. PLAN: 1. Continue pain medications and antiinflammatory. CONDITION: Stable. TIME SPENT: More than 30 minutes. Plan and coordination of the patient's care discussed in the presence of nurse. VERONICA
--- NOTE | 2021-05-16 13:20 | PN ---
DATE OF SERVICE: 05/14/21 SUBJECTIVE: The patient was seen and examined on 05/14/21. The patient's condition has improved. Back pain is much less. UTI symptoms has resolved. REVIEW OF SYSTEMS: GENERAL: The patient is up and about. CONSTITUTIONAL: No night sweats. No fatigue, malaise, lethargy. No fever or chills. HEENT: Eyes: No visual changes. No eye pain. No eye discharge. ENT: No runny nose. No epistaxis. No sinus pain. No sore throat. No odynophagia. No congestion. RESPIRATORY: No cough, no congestion. No hemoptysis. No shortness of breath. CARDIOVASCULAR: No angina symptoms. No CHF symptoms. No atypical chest pain for CAD. No palpitations. No PND. No orthopnea. GASTROINTESTINAL: No abdominal pain. No nausea or vomiting. No diarrhea or constipation. No hematemesis. No hematochezia. GENITOURINARY: No urgency. No frequency. No dysuria. No hematuria. No obstructive symptoms. No discharge. No pain. No significant abnormal bleeding. MUSCULOSKELETAL: Mild back pain. NEUROLOGICAL: No headache. No neck pain. No syncope. No seizures. No dizziness. PSYCHIATRIC: Not anxious. No depression. No suicidal thoughts. No homicidal thoughts. SKIN: No rash. No lesions. No wounds. ENDOCRINE: No unexplained weight loss. No weight gain. HEMATOLOGIC/LYMPHATIC: No anemia. No purpura. No petechiae. No prolonged or excessive bleeding. No palpable lymph nodes. PHYSICAL EXAMINATION: VITAL SIGNS: Temperature 98, pulse 45, respiratory rate 16, BP 121/50, pulse ox 98%. HEENT: Head normocephalic, atraumatic. Eyes: Extraocular muscles are intact. Pupils are equal, round and reactive to light and accommodation. Ears: No lesions. Nose appeared normal. Throat: No exudate or erythema. NECK: Supple. No JVD, no carotid bruit. No lymphadenopathy or thyromegaly. LUNGS: Clear to auscultation. Percussion note normal. Chest symmetrical. HEART: S1, S2, no S3. No murmurs. No cyanosis or clubbing. No ascites. Pulses: Dorsalis pedis and posterior tibial pulses +1 to +2 bilaterally. ABDOMEN: Soft. Nontender. Bowel sounds active. No CVA tenderness. No mass felt. EXTREMITIES: No edema. Full range of motion of all extremities, equal. NEUROLOGIC: No focal deficit. Cranial nerves II through XII are grossly intact. No headache. No double vision. SKIN: Not dry. Intact. Turgor - normal. LYMPHATIC: No palpable lymph nodes/no lymphedema. MUSCULOSKELETAL: Normal joints with no swelling. Muscle tone is normal. PLAN: 1. Discontinue Rocephin. 2. Start Omnicef. 3. Home Health Care to be started. 4. The patient is to have A1C, lipid profile, B12, T4, TSH. 5. The patient is undergoing physical therapy and she is up and about. CONDITION: Stable. TIME SPENT: More than 30 minutes. Plan and coordination of the patient's care discussed in the presence of nurse. VERONICA
--- NOTE | 2021-05-16 13:37 | PN ---
DATE OF SERVICE: 05/15/2021 SUBJECTIVE: 76 year old white female was originally admitted with acute low back pain, 8-9 on scale of 1-10. The patient's low back pain is a lot better. problem was urinary tract infection which seems to be under control. The patient is up and about undergoing physical therapy. [facility] home health care to follow her and she wants lift chair. REVIEW OF SYSTEMS: CONSTITUTIONAL: No night sweats. No fatigue, malaise, lethargy. No fever or chills. HEENT: Eyes: No visual changes. No eye pain. No eye discharge. ENT: No runny nose. No epistaxis. No sinus pain. No sore throat. No odynophagia. No congestion. RESPIRATORY: No cough, no congestion. No hemoptysis. No shortness of breath. CARDIOVASCULAR: No angina symptoms. No CHF symptoms. No atypical chest pain for CAD. No palpitations. No PND. No orthopnea. GASTROINTESTINAL: No abdominal pain. No nausea or vomiting. No diarrhea or constipation. No hematemesis. No hematochezia. GENITOURINARY: No urgency. No frequency. No dysuria. No hematuria. No obstructive symptoms. No discharge. No pain. No significant abnormal bleeding. MUSCULOSKELETAL: No musculoskeletal pain; no joint swelling. Mild low back pain. NEUROLOGICAL: No headache. No neck pain. No syncope. No seizures. No dizziness. PSYCHIATRIC: Not anxious. No depression. No suicidal thoughts. No homicidal thoughts. SKIN: No rash. No lesions. No wounds. ENDOCRINE: No unexplained weight loss. No weight gain. HEMATOLOGIC/LYMPHATIC: No anemia. No purpura. No petechiae. No prolonged or excessive bleeding. No palpable lymph nodes. PHYSICAL EXAMINATION: VITAL SIGNS: Temperature 97.6, pulse 56, respiratory rate 16, blood pressure 125/72 and pulse ox 99%. HEENT: Head normocephalic, atraumatic. Eyes: Extraocular muscles are intact. Pupils are equal, round and reactive to light and accommodation. Ears: No lesions. Nose appeared normal. Throat: No exudate or erythema. NECK: Supple. No JVD, no carotid bruit. No lymphadenopathy or thyromegaly. LUNGS: Decreased breath sounds but clear to auscultation. Percussion note normal. Chest symmetrical. HEART: S1, S2, no S3. No murmurs. No cyanosis or clubbing. No ascites. Pulses: Dorsalis pedis and posterior tibial pulses +1 to +2 bilaterally. ABDOMEN: Soft. Nontender. Bowel sounds active. No CVA tenderness. No mass felt. EXTREMITIES: No edema. Full range of motion of all extremities, equal. NEUROLOGIC: No focal deficit. Cranial nerves II through XII are grossly intact. No headache. No double vision. SKIN: Not dry. Intact. Turgor - normal. LYMPHATIC: No palpable lymph nodes/no lymphedema. MUSCULOSKELETAL: Normal joints with no swelling. Muscle tone is normal. LABS: hgb 14, hct 44, WBC 10,000 normal differential, creatinine 1.3, BUN 47, potassium 5.3. ASSESSMENT: 1. Low back pain, muscle spasm, DJD of L spine seems to be under control, the pain seems to be under control 2. UTI under control 3. Chronic kidney disease followed by hydraulic tester 4. Hyperkalemia likely diabetic nephropathy PLAN: 1. Continue pain medications, anti-inflammatory and Prednisone. CONDITION: Stable. TIME SPENT: More than 30 minutes. Plan and coordination of the patient's care discussed in the presence of nurse. VERONICA
--- NOTE | 2021-05-17 10:53 | HP ---
DATE OF SERVICE: 05/09/21 HISTORY OF PRESENT ILLNESS: This is a white female who presents to the emergency room with acute low back pain. She has underlying chronic kidney disease. She has pain radiating which is excruciating she rates as a 10 on a 1 to 10 scale, radiates down her right leg. PAST MEDICAL HISTORY: Degenerative disk disease of the L-spine Chronic kidney disease, Stage 3, sees Dr. Stafford Diabetes mellitus Type 2 Anemia Hypertension LVH Dyslipidemia GERD Hypothyroidism Polyneuropathy Osteoporosis Obesity Chronic back pain PAST SURGICAL HISTORY: Tubal Appendectomy D & C Foot surgery Complete hysterectomy REVIEW OF SYSTEMS: CONSTITUTIONAL: No night sweats. No fatigue, malaise, lethargy. No fever or chills. HEENT: Eyes: No visual changes. No eye pain. No eye discharge. ENT: No runny nose. No epistaxis. No sinus pain. No sore throat. No odynophagia. No ear pain. No congestion. RESPIRATORY: No cough, no congestion. No hemoptysis. No shortness of breath. CARDIOVASCULAR: No angina symptoms. No CHF symptoms. No atypical chest pain for CAD. No palpitations. No PND. No orthopnea. GASTROINTESTINAL: No abdominal pain. No nausea or vomiting. No diarrhea or constipation. No hematemesis. No hematochezia. GENITOURINARY: No urgency. No frequency. No dysuria. No hematuria. No obstructive symptoms. No discharge. No pain. No significant abnormal bleeding. MUSCULOSKELETAL: Right-sided pain radiating down into the right leg. NEUROLOGICAL: No headache. No neck pain. No syncope. No seizures. No dizziness. PSYCHIATRIC: Not anxious. No depression. No suicidal thoughts. No homicidal thoughts. SKIN: No rash. No lesions. No wounds. ENDOCRINE: No unexplained weight loss. No weight gain. HEMATOLOGIC/LYMPHATIC: No anemia. No purpura. No petechiae. No prolonged or excessive bleeding. No palpable lymph nodes. PERSONAL/FAMILY/SOCIAL HISTORY: She is . She lives at home alone. No alcohol or illicit drug use. She is a nonsmoker. MEDICATIONS: Ovroeuu-Mddaspfyfhgpc-Bosszzba one tablet p.o. q4-6hr p.r.n. Calcium Carbonate 600 mg p.o. daily Insulin Lispro 5 unit subcut t.i.d. with meal Ciclopirox one application topical b.i.d. Insulin Glargine 25 unit subcut bedtime Levothyroxine 75 mcg p.o. daily Gabapentin 200 mg p.o. b.i.d. Atorvastatin 20 mg p.o. daily Cholecalciferol 25 mcg p.o. daily Nystatin one application topical q.i.d. p.r.n. Oxybutynin 5 mg p.o. daily Lisinopril 10 mg p.o. daily ALLERGIES: ASPIRIN, CODEINE, DIAZEPAM, LATEX, PENICILLINS PHYSICAL EXAMINATION: HEENT: Head normocephalic, atraumatic. Eyes: Extraocular muscles are intact. Pupils are equal, round and reactive to light and accommodation. Ears: No lesions. Nose appeared normal. Throat: No exudate or erythema. NECK: Supple. No JVD, no carotid bruit. No lymphadenopathy or thyromegaly. LUNGS: Diminished breath sounds. Clear to auscultation. Percussion note normal. Chest symmetrical. HEART: S1, S2, no S3. No murmur. No cyanosis or clubbing. No ascites. Pulses: Dorsalis pedis and posterior tibial pulses +1 to +2 bilaterally. ABDOMEN: Soft. Nontender. Bowel sounds active. No CVA tenderness. Positive right SI joint tenderness. No mass felt. EXTREMITIES: Trace bilateral leg edema. Full range of motion of all extremities, equal. NEUROLOGIC: No focal deficit. Cranial nerves II through XII are grossly intact. No headache, no double vision or headache. SKIN: Not dry. Intact. Turgor - normal. LYMPHATIC: No palpable lymph nodes/no lymphedema. MUSCULOSKELETAL: Normal joints with no swelling. Muscle tone is normal. Urine positive for a urinary tract infection. Will do pending culture. CT of the L-spine shows severe degeneration of the lower back. CT of the pelvis was unremarkable, showed no acute process. ASSESSMENT: 1. Acute low back pain, lumbar sprain. 2. UTI, culture pending. 3. Chronic kidney disease Stage 3. 4. Diabetes mellitus type 2. 5. History of DJD of the L-spine. PLAN: 1. Routine telemetry orders. 2. CBC, CMP daily. 3. Continue home medications. 4. Solu-Cortef 125 IV q.8hr. 5. Rocephin 1 gm IV daily for UTI. 6. Normal Saline IV at 75 cc/hr. 7. Continue home medications. 8. Zanaflex 4 mg t.i.d. p.r.n. p.o. 9. Toradol 15 mg IV t.i.d. p.r.n. for back pain. 10. Will follow closely. TIME SPENT: More than 70 minutes. MTDD
--- NOTE | 2021-05-17 11:18 | ECHO2D ---
Date of Exam: 05/16/2021 Ordering Physician: DR. ASHTYN SCHAEFFER Room #: 102 Reason for Echo: SOB, HTN, DM2, CKD-3 M-Mode Normal Adult Results LV Dimensions Normal Adult Results AoV Opening excursions >1.6 >1.6 LVEDD-base- 3.5-5.8 4.7 Ao root dimensions 2.0-3.7 2.9 LVESD-base- 3.1-4.6 L. Atrium dimensions 1.9-3.8 5.0 Post. Wall thickness 0.8-1.1 1.3 IV septum (thickness) 0.7-1.2 1.3 Post. Wall excursion 0.72-1.3 NORMAL Septal motion NORMAL Systolic motion R. Ventricular cavity 1.5-2.0 NORMAL LVEF 60% 68% Paradoxical septal wall motion NORMAL 2-D : 2-D M Mode Echocardiogram was performed using apical four chamber and left parasternal long and short axis views. Mitral, tricuspid and aortic valves appear to be normal. Contractility of the left ventricle seems to be normal, so is the cavity size. ENLARGED LEFT ATRIAL CAVITY. Aortic root appears to be normal. There is no pericardial effusion. There is no thrombus noted in the left ventricle or left atrial cavity. M-MODE: MV: NORMAL AV: NORMAL TV: NORMAL PV: CHAMBER SIZE: ENLARGED LEFT ATRIAL CAVITY WALL MOTION: NORMAL PERICARDIUM: NORMAL INTERPRETATION: 1. LEFT VENTRICULAR HYPERTROPHY WITH ENLARGED LEFT ATRIAL CAVITY (5.0 CM) 2. NORMAL LEFT VENTRICLE CONTRACTILITY 3. NORMAL VALVES AND LEFT VENTRICLE SIZE MTDD
--- NOTE | 2021-05-17 14:38 | DS ---
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 SECONDARY INSURANCE [facility] TO TAKE CARE OF OBTAINING A LIFT CHAIR, PRESCRIPTION SENT. MD FOLLOW UP: SEE DR. SCHAEFFER/ JOHN CALLAHAN APRN/ MARTIN PEREZ APRN IN THE OFFICE ON Saturday @ 1030 AM. TAKE THESE MEDICATIONS AT HOME: ASPIRIN-Acetaminophen- caffeine ( extra strength pain reliever ) PO Q4-6 hours PRN PRN Reason: Analgesia Atorvastatin Calcium (Atorvastatin Calcium 20 Mg Tablet) 20 mg PO DAILY [facility] Last Admin: 05/16/21 10:03 Dose: 20 mg Documented by: Calcium/Vitamin D (Calcium Carbonate/Vitamin D3 500 Mg/5 Mcg(200iu) 1 Each Tablet) 1 each PO DAILY [facility] Last Admin: 05/16/21 10:04 Dose: 1 each Documented by: Cefdinir (Cefdinir 300 Mg Capsule) 300 mg PO Q12HR [facility] THIS PM AND THEN 5 MORE DAYS ( TOTAL OF 11 DOSES ) Stop: 05/17/21 12:59 Last Admin: 05/16/21 10:04 Dose: 300 mg Documented by: Cholecalciferol (Cholecalciferol (Vitamin D3) 1,000 Unit (25 Mcg) Tablet) 1,000 unit PO DAILY [facility] Last Admin: 05/16/21 10:04 Dose: 1,000 unit Documented by: Gabapentin (Gabapentin 100 Mg Capsule) 200 mg PO BID [facility] Last Admin: 05/16/21 10:04 Dose: 200 mg Documented by: Insulin Glargine (Insulin Glargine,Hum.Rec.Anlog 100 Units/Ml) 25 unit SUBCUT BEDTIME [facility] Last Admin: 05/15/21 20:26 Dose: 25 unit Documented by: Insulin Human Lispro (Insulin Lispro 100 Unit/Ml (3 Ml) Vial) 5 unit SUBCUT TIDWM [facility] Last Admin: 05/16/21 12:04 Dose: 5 unit Documented by: Levothyroxine Sodium (Levothyroxine Sodium 75 Mcg Tablet) 75 mcg PO QDAC [facility] Last Admin: 05/16/21 05:34 Dose: 75 mcg Documented by: Lisinopril (Lisinopril 10 Mg Tablet) 10 mg PO DAILY [facility] Last Admin: 05/16/21 10:05 Dose: 10 mg Documented by: Nystatin (Nystatin 15 Gm Powder) 1 applic TP QID PRN PRN Reason: Skin excoriation Oxybutynin Chloride (Oxybutynin Chloride 5 Mg Tablet) 5 mg PO DAILY [facility] Last Admin: 05/16/21 10:05 Dose: 5 mg Documented by: Phenazopyridine HCl (Phenazopyridine Hcl 100 Mg Tablet) 100 mg PO BID [place]AWN X 2 DAYS Stop: 05/18/21 21:01 Last Admin: 05/16/21 10:04 Dose: 100 mg Documented by: Tramadol HCl (Tramadol Hcl 50 Mg Tablet) 50 mg PO TID [facility] Last Admin: 05/16/21 10:03 Dose: 50 mg Documented by: CICLOPIROX ONE APPLICATION TOPICAL BID ZANAFLEX 4 MG 1 TABLET PO BID PRN TRAMADOL 50 MG 1 TABLET PO BID PRN ALLERGIES: aspirin Adverse Reaction (Verified 05/09/21 15:14) codeine Adverse Reaction (Verified 05/09/21 15:14) diazepam [From Valium] Adverse Reaction (Verified 05/09/21 15:14) latex Adverse Reaction (Verified 05/09/21 15:14) Penicillins Adverse Reaction (Verified 05/09/21 15:14) DISCONTINUED MEDICATIONS: NONE NEW PRESCRIPTIONS: OMNICEF 300 MG PO Q 12 HOURS X TONIGHT AT HOME AND 5 MORE DAYS PYRIDIUM 100 MG PO BID X 3 MORE DOSES ZANAFLEX 4 MG 1 TABLET PO BID PRN TRAMADOL 50 MG 1 TABLET PO BID PRN SMOKING: N/A DISEASE SPECIFIC EDUCATION: UTI BACK PAIN ACTIVITY COVID LAB REVIEW: 05/16/21 04:40 05/16/21 04:40 05/16/21 04:40: Sodium 138.9, Potassium 5.25 H, Chloride 101.2, Carbon Dioxide 38.5 H, Anion Gap 4.45, BUN 40.8 H, Creatinine 1.31 H, Estimated GFR (MDRD) 39.00, BUN/Creatinine Ratio 31.14, Glucose 98.1, Calcium 9.26, Total Bilirubin 0.66, AST 29.8, ALT 86.4 H, Alkaline Phosphatase 62.0, Total Protein 5.32 L, Albumin 3.28 L, Globulin 2.04, Albumin/Globulin Ratio 1.60 05/16/21 04:40: WBC 10.60 H, RBC 4.99, Hgb 14.5, Hct 43.0, MCV 86.2, MCH 29.1, MCHC 33.7, RDW Coeff of [place] 12.4, Plt Count 171, Immature Gran % (Auto) 0.6, Neut % (Auto) 60.9, Lymph % (Auto) 22.5, [place] % (Auto) 11.7 H, Eos % (Auto) 4.1, Baso % (Auto) 0.2, Neut # (Auto) 6.5, Lymph # (Auto) 2.4, [place] # (Auto) 1.2, Eos # (Auto) 0.4, Baso # (Auto) 0.0, Immature Gran # (Auto) 0.1 05/13/21 18:10: Urine Creatinine 44.9, Urine Microalbumin 58.8, Microalb/Creat Ratio 131 H CODE STATUS: DO NOT RESUSCITATE ACTIVITY: UP TOLERATED WITH FREQUENT REST PERIODS USE WHEELED WALKER AND FOLLOW HOME HEALTH GUIDELINES DIET: CONSISTENT [facility]BOHYDR[facility] HOSPITAL COURSE: 76 year old white female who was admitted for acute low back pain also found to have UTI which was positive of e-coli. She was treated with Rocephin and will go home on Omnicef 300mg BID for the next 5 days to complete a 10 day course. Her back pain has significantly improved. She had radiculopathy radiating down her right leg. She was placed on IV steroids. Solu-Cortef initially and then weaned down to Prednisone. She was covered with sliding scale for insulin for her diabetes. Started on Zanaflex 4mg PO TID for muscles spasms. We discontinued the Toradol as she does have underline chronic kidney disease, started on Tramadol 50mg BID scheduled. This has significantly improved her pain. She will go home on Tramadol 50mg BID PRN, Zanaflex 4mg BID PRN,Omnicef 300mg BID for 5 days. Kidney function has improved since admission. BUN 40, creatinine 1.3, WBC 10, Hgb 14.5, hct 43, Sodium 138, potassium 5.2. She declines to see neurosurgeon regarding her back. Information regarding NSAIDS, not taking NSAIDS and her chronic kidney disease has been discussed. She will discharged home in stable condition. She is going to have Home Health for PT/OT which I do think that she would benefit from. We will follow closely and followup in the office. TIME SPENT: More than 60 minutes. VERONICA
== END 2021-05-16 16:33 | disposition home or self-care (01) | DRG 552 ==
LOC: ED 15:07 → MEDSURG A 20:15
PROVIDERS: ADMIT Internal Medicine; ATTEND Internal Medicine
DX: M54.16 Radiculopathy, lumbar region; M54.9 Dorsalgia, unspecified; M54.5 Low back pain; S33.5XXA Sprain of ligaments of lumbar spine, initial encounter; N18.30 Chronic kidney disease, stage 3 unspecified; E87.5 Hyperkalemia; M25.551 Pain in right hip; M62.830 Muscle spasm of back; Z20.822 Contact with and (suspected) exposure to COVID-19; I65.23 Occlusion and stenosis of bilateral carotid arteries; B96.20 Unspecified Escherichia coli [E. coli] as the cause of diseases classified elsewhere; M25.552 Pain in left hip; E11.21 Type 2 diabetes mellitus with diabetic nephropathy; R63.0 Anorexia